=== PATIENT | female | born 1960 | race Caucasian/White ===

== ENCOUNTER 2020-09-23 01:41 | Emergency (ER) | payer OTHER, SELFPAY ==
[2020-09-23 01:50] VITALS: BP 132/87; PULSE 78; RESP 18; TEMP 36.4; O2SAT 99; BMI 30.9
--- NOTE | 2020-09-23 01:58 | ED.FEMALEGU ---
HPI - Female Genitourinary General Chief complaint: Urogenital-Female Stated complaint: Multiple complaints Time Seen by Provider: 09/23/20 01:58 Source: patient Mode of arrival: ambulatory Limitations: no limitations History of Present Illness HPI Narrative: Patient with significant past medical history was in [place] came back 4 days ago for last 2 days feeling pain when she urinates, with urgency body aches and nausea no hematuria no flank pain no abdominal distention or pain just does not feel good patient had COVID in 04/13 MD elicited complaint: dysuria Related Data Allergies Allergy/AdvReac Type Severity Reaction Status Date / Time No Known Allergies Allergy Unverified 03/11/20 14:42 N.K.D.A. Allergy Unknown Uncoded 09/23/18 00:00 Pt states she might be AdvReac Unknown Gassiness Uncoded 08/27/17 00:00 lactose Review of Systems Review of Systems: Constitutional : No Weight loss, No Fever, No Chills ENT/Mouth : No sore throat, No Rhinorrhea Eyes: No Eye Pain, No Swelling Cardiovascular : No Chest Pain, no palpitations Respiratory : No Cough, No Sputum, no shortness of breath Gastrointestinal : no Nausea, No Vomiting, No Diarrhea, No abdominal Pain, no black stools Genitourinary : ++ Dysuria, No Urinary Frequency Musculoskeletal : No joint pain, No Myalgias, No Joint Swelling Skin : No Skin Lesions, No rash Neuro : No Weakness, No Numbness, No Dizziness, No Headache Psych : No Anxiety/Panic, No Depression Heme/Lymph: No Bruising, No Lymphadenopathy Endocrine : No Polyuria, No Polydipsia All other systems reviewed and are negative [facility] Social History Social History Advance Directives: No Physical Exam Vital Signs: Vital Signs: Last Vital Signs Temp 97.6 F 09/23/20 01:50 Pulse 83 09/23/20 03:05 Resp 16 09/23/20 03:05 BP 119/76 09/23/20 03:05 Pulse Ox 98 09/23/20 03:05 Body Mass Index 30.9 Appearance: Alert. Oriented X3. No acute distress. Eyes: Pupils equal, round and reactive to light. ENT: Pharynx normal. Neck: Normal inspection. Neck supple. CVS: Normal heart rate and rhythm. Pulses normal. Respiratory: No respiratory distress. Breath sounds normal. Abdomen: Soft and nontender. Bowel sounds are present, no mass palpable, no CVA tenderness Skin: Skin warm and dry. Normal skin color. Normal skin turgor. Extremities: No lower extremity edema. Neuro: Oriented X 3. No motor deficit. No sensory deficit. MDM - Female Genitourinary MDM Narrative Medical decision making narrative: Patient with non specific symptoms urine is negative for UTI COVID also negative no significant past medical history likely from viral etiology. Will discharge patient home Differential Diagnosis Differential diagnosis: Likely urinary tract infection Lab Data Attestation: I reviewed the patient's lab results. Labs: Lab Results 09/23/20 09/23/20 09/23/20 Range/Units 01:59 02:16 03:16 POC Glucose 130 H (60-115) mg/dL Urine Color YELLOW Urine Appearance CLEAR Urine pH 6.5 (5.0-8.0) Ur Specific Jackson 1.020 (1.005-1.025) Urine Protein NEG (NEG-TRACE) MG/DL Urine Glucose (UA) NEG (NEG) MG/DL Urine Ketones NEG (NEG) MG/DL Urine Blood NEG (NEG) Urine Nitrite NEG (NEG) Ur Leukocyte Esterase NEG (NEG) COVID-19 (KEENAN) Negative (Negative) COVID-19 Clin Com See Note Discharge Plan Discharge Clinical Impression: Weakness Patient Disposition: Home, Self-Care Instructions: Weakness (ED) Additional Instructions: Drink plenty of fluids , your urine is negative for any infection and COVID test is also negative. Follow with PCP if not better Report to the ER if any significant abdominal pain/fever/increased vomiting Interventions: ED Discharge Assessment Last Done: 09/23/20 03:31 Discharge Date/Time: 09/23/20 03:15
--- NOTE | 2020-09-23 02:00 | PC.NURSE ---
UA obtained and sent. Awaiting primary MD eval.
[2020-09-23 02:05] LABS: Glucose Urine UA NEG (NEG); Leukocyte Esterase Urine NEG (NEG); Nitrite Urine NEG (NEG); PH 6.5 (5.0-8.0); Urine Blood NEG (NEG); Urine Ketones NEG (NEG); Urine Protein NEG (NEG-TRACE)
[2020-09-23 02:06] LABS: Appearance Urine CLEAR; Color Urine YELLOW; UACC Culture Trigger NO
--- NOTE | 2020-09-23 02:08 | PC.NURSE ---
at bedside for primary eval.
--- NOTE | 2020-09-23 02:26 | PC.NURSE ---
Covid swab obtained and sent.
[2020-09-23 02:37] LABS: IDNOW Serial# 9DD0AD1C
[2020-09-23 02:38] LABS: COVID-19 Test Negative (Negative)
[2020-09-23 03:05] VITALS: BP 119/76; PULSE 83; RESP 16; O2SAT 98
--- NOTE | 2020-09-23 03:20 | PC.NURSE ---
POC obtained by airframe technician. Medicated per AUG.
[2020-09-23 03:24] LABS: Glucose, Whole Blood 130 mg/dL (60-115)
== END 2020-09-23 03:15 | disposition home or self-care (01) ==
PROVIDERS: Emergency Provider Internal Medicine; PCP Family Medicine
DX: R53.1 Weakness (principal); R30.0 Dysuria; R11.0 Nausea; Z20.822 Contact with and (suspected) exposure to COVID-19
CPT/HCPCS: 36415; 81003; 82947; 87635; 99283; 99284

== ENCOUNTER 2021-01-26 07:48 | Outpatient (REF) | payer OTHER, SELFPAY ==
--- NOTE | ~2021-01-26 | MM_ITS ---
EXAMINATION: MM SCREENING DIGITAL BREAST TOMOSYNTHESIS, BILATERAL CLINICAL INFORMATION: Screening. Asymptomatic. The lifetime risk of breast cancer based on the Tyrer-Cuzick Model is 9%. COMPARISON: Mammography: 01/21/2020, 11/01/2018, 08/07/2017 TECHNIQUE: Digital breast tomosynthesis is performed in both the craniocaudal and mediolateral oblique views along with computer-aided detection (CAD). Synthesized 2D images are generated from the tomosynthesis. Additional exaggerated left CC view is provided. FINDINGS: There are scattered areas of fibroglandular density (ACR BI-RADS breast composition Category b). There are no significant masses, abnormal calcifications, or other abnormalities. There is a smooth circumscribed nodule again seen 6:30 o'clock left breast under 5 mm. A few scattered benign round calcifications are again noted. The skin contours are smooth. MM/MM tomosynthesis screening BI IMPRESSION: No significant changes from prior exam. ASSESSMENT: BI-RADS 2: Benign RECOMMENDATION: Routine annual mammography screening. This patient's information was entered into a reminder system with a target due date for their next mammogram.
--- NOTE | ~2021-01-26 | MM_ITS ---
EXAMINATION: BONE DENSITOMETRY CLINICAL INDICATION: Osteoporosis. COMPARISON: This is the patient's baseline examination. TECHNIQUE: Using a [employer] DXA System (software version: 13.1) manufactured by [employer], dual-energy x-ray absorptiometry was performed of the lumbar spine and left hip. The images are of good technical quality. Summary results are attached. FINDINGS: AP SPINE L1-L4: BMD 1.265 g/cm2, Z-score 1.5, T-score 0.7, normal. LEFT FEMUR, NECK: BMD 0.925 g/cm2, Z-score 0.1, T-score -0.8, normal. LEFT FEMUR, TOTAL: BMD 1.042 g/cm2, Z-score 0.9, T-score 0.3, normal. IDENTIFIED RISK FACTORS: Menopause, family history (parent hip fracture). HISTORY OF FRACTURE: None listed. MEDICATIONS: Vitamin D. MM/XR DEXA axial skeleton IMPRESSION: 1. DIAGNOSIS: Normal bone density based on the lowest T-score value of -0.8 in the femoral neck applying World Health Organization criteria. 2. 10-YEAR FRACTURE RISK PREDICTION, FRAX: Major osteoporotic fracture (clinical spine, forearm, hip or shoulder) 13.8%. Hip fracture 0.3%. 3. Treatment Recommendations: NOF guidelines recommend consideration for treatment in postmenopausal women and men age 50 and older presenting with the following: -A hip or vertebral (clinical or morphometric) fracture. -T-score less than or equal to -2.5 at the femoral neck or spine after appropriate evaluation to exclude secondary causes. -Low bone mass at the hip or spine and a 10-year fracture probability by FRAX of greater than or equal to 3% for hip fracture or greater than or equal to 20% for major osteoporotic fracture based on the [place] adapted WHO algorithm. 4. Other Recommendations: All treatment decisions require clinical judgment and consideration of individual patient factors, including patient preferences, comorbidities, previous drug use, risk factors not captured in the FRAX model (e.g. frailty, falls, vitamin D deficiency, increased bone turnover, interval significant decline in bone density) and possible under or overestimation of fracture risk by FRAX. FUTURE SCAN RECOMMENDATION: People with diagnosed cases of osteoporosis or at high risk for fracture should have regular bone mineral density tests. For patients eligible for Medicare, routine testing is allowed once every 2 years. The testing frequency can be increased to one year for patients who have rapidly progressing disease, those who are receiving or discontinuing medical therapy to restore bone mass, or have additional risk factors.
== END 2021-01-26 07:49 | disposition home or self-care (01) ==
LOC: HO.MAMMO 07:48
PROVIDERS: PCP Family Medicine; Visit Provider Obstetrics & Gynecology
DX: Z12.31 Encounter for screening mammogram for malignant neoplasm of breast (principal); Z13.820 Encounter for screening for osteoporosis; Z78.0 Asymptomatic menopausal state; Z79.899 Other long term (current) drug therapy
CPT/HCPCS: 77063; 77067; 77080

== ENCOUNTER 2021-06-15 10:50 | Outpatient (REF) | payer OTHER, SELFPAY | END 2021-06-15 10:51 | disposition home or self-care (01) | LOC: HO.LAB 10:50 | PROVIDERS: Visit Provider Internal Medicine | DX: Z20.822 Contact with and (suspected) exposure to COVID-19 (principal) | CPT/HCPCS: C9803; U0003; U0005 ==

== ENCOUNTER 2022-01-27 08:04 | Outpatient (REF) | payer OTHER, SELFPAY ==
--- NOTE | ~2022-01-27 | MM_ITS ---
EXAMINATION: MM SCREENING DIGITAL BREAST TOMOSYNTHESIS, BILATERAL CLINICAL INFORMATION: Screening. Asymptomatic. The lifetime risk of breast cancer based on the Tyrer-Cuzick Model is 6%. COMPARISON: Mammography: 01/26/2021, 01/21/2020, 11/01/2018, 07/31/2016 TECHNIQUE: Digital breast tomosynthesis is performed in both the craniocaudal and mediolateral oblique views along with computer-aided detection (CAD). Synthesized 2D images are generated from the tomosynthesis. FINDINGS: There are scattered areas of fibroglandular density (ACR BI-RADS breast composition Category b). There are no significant masses, abnormal calcifications, or other abnormalities. Parenchymal pattern is similar to prior studies. There is no developing density or architectural abnormality. The axilla and skin contours are unremarkable. No significant changes. MM/MM tomosynthesis screening BI IMPRESSION: No significant changes from prior exams. ASSESSMENT: BI-RADS 1: Negative RECOMMENDATION: Routine annual mammography screening. This patient's information was entered into a reminder system with a target due date for their next mammogram.
== END 2022-01-27 08:05 | disposition home or self-care (01) ==
LOC: HO.MAMMO 08:04
PROVIDERS: PCP Family Medicine; Visit Provider Obstetrics & Gynecology
DX: Z12.31 Encounter for screening mammogram for malignant neoplasm of breast (principal)
CPT/HCPCS: 77063; 77067

== ENCOUNTER 2022-08-15 18:20 | Emergency (ER) | payer OTHER, SELFPAY ==
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
[2022-08-15 18:38] VITALS: BP 128/86; PULSE 76; RESP 18; TEMP 36.7; O2SAT 97; BMI 30.9
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
[2022-08-15] MEDS: Ibuprofen 600 MG TABLET PO (21:52)
== END 2022-08-15 22:55 | disposition home or self-care (01) ==
PROVIDERS: Emergency Provider Emergency Medicine; PCP Family Medicine
DX: S13.4XXA Sprain of ligaments of cervical spine, initial encounter (principal); S09.90XA Unspecified injury of head, initial encounter; V43.52XA Car driver injured in collision with other type car in traffic accident, initial encounter; Y93.89 Activity, other specified; Y92.414 Local residential or business street as the place of occurrence of the external cause; Y99.8 Other external cause status
CPT/HCPCS: 70450; 72125; 99283; 99284

== ENCOUNTER 2023-04-05 08:38 | Outpatient (AMB) | payer OTHER, SELFPAY ==
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
[2023-04-05 09:24] VITALS: BP 110/70; PULSE 80; O2SAT 98
== END 2023-04-05 09:50 | disposition home or self-care (01) ==
PROVIDERS: PCP Family Medicine; Visit Provider Physician Assistant
DX: B86 Scabies (principal)
CPT/HCPCS: 99213

== ENCOUNTER 2023-10-20 10:41 | Outpatient (AMB) | payer OTHER, SELFPAY ==
--- NOTE | 2023-10-20 10:48 | MHC.OFFWIV ---
Intake Vital Signs 10/20/23 10:58 Height 5 ft 4.5 in Weight 187 lb BMI 31.6 BP 120/82 Blood Pressure Location Lt brachial Position Sitting Pulse 88 Pulse Source Pulse Oximeter Temp 98.1 F Temp Source Oral Pulse Oximetry (%) 96 Oxygen Delivery Method Room Air Intake Visit Reasons: EP allergies Intake Note: Pt is here today c/o allergies and a cough 3days Patient Tobacco Use Status: Never used Tobacco Allergies No Known Allergies Allergy (Verified 10/20/23 11:15) N.K.D.A. Allergy (Unknown, Uncoded 10/20/23 10:48) unknown Pt states she might be lactose Adverse Reaction (Unknown, Uncoded 10/20/23 10:48) Gassiness Medication List - Last Reconciled 10/20/23 by Clary Barber, [employer]- alprazolam 1 mg PO DAILY PRN bupropion HCl XL 300 mg PO DAILY cetirizine (Zyrtec) 10 mg PO DAILY PRN citalopram 10 mg PO DAILY fluticasone propionate 50 mcg/actuation (Flonase Allergy Relief) 1 spray intranasal DAILY permethrin 5% 1 appl topical Q14D 2 doses HPI HPI Comments History of Present Illness Details Here today with complaints of uncontrolled seasonal allergies. Reports that she takes zyrtec & Flonase daily. Within the last few days she has experienced a cough, mild wheezing, nasal drainage. She reports that she has used prednisone in the past with great effect along with an inhaler. She does not feel ill. She denies fever, chills, ear pain, sore throat. [facility] Social History Patient Tobacco Use Status: Never used Tobacco Review of Systems Const All systems reviewed & are unremarkable except as noted in HPI and below Physical Exam Vital Signs: Last Vital Signs Temp 98.1 F 10/20/23 10:58 Pulse 88 10/20/23 10:58 BP 120/82 10/20/23 10:58 Pulse Ox 96 10/20/23 10:58 Oxygen Delivery Method Room Air 10/20/23 10:58 BMI result Body Mass Index 31.6 Const Other: Awake alert NAD Sclera and conjunctiva clear bilat TM intact and clear bilat nares patent, turbinates pale, no sinus tenderness MMM, pharynx WNL RRR LS CTAB, occasional dry cough Assessment & Plan Assessment & Plan (1) Seasonal allergies: Code(s): J30.2 - Other seasonal allergic rhinitis Plan: . Plan . Medications: New prednisone 20 mg PO DAILY 5 tabs 0RF albuterol sulfate 90 mcg/actuation 2 inhalations inhalation Q6H PRN 1 ea 0RF shortness of breath or wheezing Patient Instructions: Advised to continue taking Flonase and Zyrtec. Start prednisone and albuterol. If no improvement or worsening of symptoms advised to return to the office. Coding Level of Care Code Est Pt Level 3 (02648) Diagnoses Seasonal allergies J30.2
[2023-10-20 10:58] VITALS: BP 120/82; PULSE 88; TEMP 36.7; O2SAT 96; BMI 31.6
== END 2023-10-20 11:38 | disposition home or self-care (01) ==
PROVIDERS: PCP Family Medicine; Visit Provider Nurse Practitioner Family
DX: J30.2 Other seasonal allergic rhinitis (principal)
CPT/HCPCS: 99213

== ENCOUNTER 2024-09-29 22:43 | Emergency (ER) | payer BC, SELFPAY ==
--- NOTE | ~2024-09-29 | XR_ITS ---
CLINICAL HISTORY: left knee pain 4 view left knee Comparison: None Findings: Bones intact. No dislocations. Moderate tricompartmental osteoarthritis with joint space narrowing pronounced in the medial and patellofemoral compartments. No joint effusion. No radiopaque foreign body. IMPRESSION: 1. No acute fracture. This document has been electronically signed by: Savage Calhoun MD on 09/29/2024 23:32:47
[2024-09-29 22:48] VITALS: BP 176/102; PULSE 72; O2SAT 100
[2024-09-29 22:56] VITALS: BP 126/74; PULSE 74; RESP 16; TEMP 36.6; O2SAT 99; BMI 35.6
--- NOTE | 2024-09-30 | ED_ITS ---
HPI - Extremity Injury (Lower) General Chief Complaint: Extremity Injury, Lower Stated Complaint: Fall, felt pop in L knee Time Seen by Provider: 09/29/24 23:49 Source: patient and EMS Mode of arrival: EMS Limitations: no limitations History of Present Illness ED Provider: DR. Carranza HPI Narrative: 63-year-old female otherwise healthy came in for evaluation of left knee pain after she twisted it and fell. Patient was holding a heavy box that dropped off her hand causing the patient to trip over it twisting her left knee patient felt pop in the left knee, patient could not get herself up, can not bear weight on her left knee because of the pain. No head injury, no neck pain, no LOC, anticoagulation medication, no chest pain, no shortness of breath, no abdominal pain, no nausea, no vomiting. Related Data Home Medications ?Medication ?Instructions ?Recorded ?Confirmed alprazolam 1 mg tablet 1 mg PO DAILY PRN 04/05/23 10/20/23 bupropion HCl 300 mg 24 hr tablet, 300 mg PO DAILY 04/05/23 10/20/23 extended release citalopram 10 mg tablet 10 mg PO DAILY 04/05/23 10/20/23 cetirizine 10 mg tablet (Zyrtec) 10 mg PO DAILY PRN 10/20/23 10/20/23 fluticasone propionate 50 1 spray intranasal DAILY 10/20/23 10/20/23 mcg/actuation nasal spray,suspension (Flonase Allergy Relief) Previous Rx's ?Medication ?Instructions ?Recorded permethrin 5 % topical cream 1 appl topical Q14D 2 doses #60 04/05/23 grams albuterol sulfate 90 mcg/actuation 2 inh inhalation Q6H PRN shortness 10/20/23 breath activated powder inhaler of breath or wheezing #1 ea prednisone 20 mg tablet 20 mg PO DAILY #5 tabs 10/20/23 Allergies Allergy/AdvReac Type Severity Reaction Status Date / Time No Known Allergies Allergy Verified 09/29/24 23:01 N.K.D.A. Allergy Unknown unknown Uncoded 09/29/24 23:01 Pt states she might be AdvReac Unknown Gassiness Uncoded 09/29/24 23:01 lactose Review of Systems Review of Systems: All other systems are reviewed and are negative Constitutional: Reports as per HPI and Reports no additional constitutional complaints Eyes: Reports as per HPI and Reports no additional eye complaints Reports system reviewed and no additional complaints, except as documented Cardiovascular: Reports as per HPI and Reports no additional cardiovascular complaints Respiratory: Reports as per HPI and Reports no additional respiratory complaints Gastrointestinal: Reports as per HPI and Reports no additional gastrointestinal complaints Genitourinary: Reports no additional female genitourinary complaints Musculoskeletal: Reports no additional musculoskeletal complaints Skin/Breast: Reports system reviewed and no additional complaints, except as docu Psychiatric: Reports no additional psychiatric complaints Endocrine: Reports no additional endocrine complaints Hematologic/Lymphatic: Reports no additional hematologic/lymphatic complaints Allergic/Immunologic: Reports no additional allergic/immunologic complaints Reports system reviewed and no additional complaints, except as documented and Reports Abnormal speech present [facility] Social History Social History Patient Tobacco Use Status: Never used Tobacco Smoked in Last 30 Days: No Use of substances other than those prescribed or required for medical reasons: No Do you have a plan to hurt others: No Plan Patient : No Physical Exam Vital Signs: Vital Signs: Last Vital Signs Temp 97.9 F 09/29/24 22:56 Pulse 74 09/29/24 22:56 Resp 16 09/29/24 22:56 BP 126/74 09/29/24 22:56 Pulse Ox 99 09/29/24 22:56 O2 Del Method Room Air 09/29/24 22:56 BMI result Body Mass Index 35.6 Vital signs have been reviewed and appear to be correct. Blood pressure elevated. Heart rate normal. Respiratory rate normal. Temperature normal. Oxygen saturation normal. Appearance: Alert. Oriented X3. No acute distress. Head: Normal external exam. Normocephalic. Atraumatic. No Cordero signs noted. No raccoon eyes noted Eyes: PERRLA. EOMI. Conjunctiva and sclera normal. Eyelids normal. ENT: TM's Normal. Pharynx normal. Uvula midline. Moist mucous membranes. No trismus noted. No drooling noted. No muffled voice noted. Neck: Normal inspection. Neck supple. FROM. No adenopathy. Thyroid Normal. No meningeal signs. No neck mass noted. CVS: Normal heart rate and rhythm. Heart sound normal. No murmurs noted. Pulses normal throughout. Respiratory: No respiratory distress. Painless inspiration. Breath sounds normal. No wheezes/rales/rhonchi noted. Chest nontender. No accessory muscle usage noted or decreased air movement noted. Abdomen: Soft and nontender. Bowel sounds normal in all 4 quadrants. No distention noted. No organomegaly noted. No visible injury noted. Back: No CVA tenderness. Full range of motion noted. Skin: Skin warm and dry. Normal skin color. Normal skin turgor. No rashes/lesions/lacerations noted. Extremities: Left lower extremity exam: Left knee slight swelling, mild tenderness over the medial aspect of the left knee, otherwise painful for range of motion, unable to do ligamentous exam secondary to severe pain in the left knee, no hip deformity or tenderness with full range of motion, neurovascularly intact. Neuro: Oriented X 3. Cranial nerve exam: II-XII are grossly intact No motor deficit. No sensory deficit. Reflexes normal. Course Reevaluation(s) Reevaluation #1: Left knee sprain,: Apply ice tonight, knee immobilizer, no weight-bearing use crutches, follow-up with ortho. Time: 00:04 Medical Decision Making Differential Diagnosis Differential Diagnoses: The differential diagnosis associated with the presentation includes (Head injury, cervical spine injury, chest injury, abdominal injury, left knee fracture, left knee ligamentous injury, hip fracture.) Admission/Observation Consideration of admission/observation: Escalation of care including admission/observation considered Independent Interpretation I performed an independent interpretation of an: Plain X-Ray (Left knee x- ray:Bones intact. No dislocations. Moderate tricompartmental osteoarthritis with joint space narrowing pronounced in the medial and patellofemoral compartments. No joint effusion. No radiopaque foreign body.) Radiology Impression Discussion of test interpretation with radiology: I have reviewed the radiologist's reading. Discharge Plan Discharge Clinical Impression: Acute internal derangement of knee Patient Disposition: Home, Self-Care Instructions: Knee Sprain (ED) Prescriptions: No Action bupropion HCl 300 mg tablet extended release 24 hr 300 mg PO DAILY citalopram 10 mg tablet 10 mg PO DAILY alprazolam 1 mg tablet 1 mg PO DAILY PRN permethrin 5 % cream 1 appl topical Q14D Qty: 60 0RF Rx Instructions: apply second treatment 14 days after first treatment if live lice remain cetirizine [Zyrtec] 10 mg tablet 10 mg PO DAILY PRN fluticasone propionate [Flonase Allergy Relief] 50 mcg/actuation spray,suspension 1 spray intranasal DAILY Rx Instructions: administer into each nostril prednisone 20 mg tablet 20 mg PO DAILY Qty: 5 0RF albuterol sulfate 90 mcg/actuation aerosol powdr breath activated 2 inh inhalation Q6H PRN (Reason: shortness of breath or wheezing) Qty: 1 0RF Referrals: Michael Carrera MD [Physician] - Stand Alone Forms: Work/School Release Print Language: Tanzanian
[2024-09-30 00:32] VITALS: BP 111/71; PULSE 69; RESP 16; TEMP 36.4; O2SAT 97
[2024-09-30] MEDS: Ibuprofen 400 MG TABLET PO (00:35)
[2024-09-30 00:53] VITALS: BP 111/71; PULSE 69; RESP 16; TEMP 36.4; O2SAT 97
--- NOTE | 2024-09-30 00:54 | PC.NURSE ---
Left knee brace applied. Pt tolerated well. Crutch training provided. Pt able to demonstrate proper use of crutches.
== END 2024-09-30 01:13 | disposition home or self-care (01) ==
LOC: HO.ED 09-30 00:33
PROVIDERS: Emergency Provider Emergency Medicine
DX: M23.8X2 Other internal derangements of left knee (principal); M25.562 Pain in left knee
CPT/HCPCS: 73564; 99283; 99284

== ENCOUNTER → 2024-09-29 22:55 | Outpatient (BNV) | payer BC, SELFPAY | PROVIDERS: Emergency Provider Emergency Medicine; Visit Provider Radiology Diagnostic Radiology | DX: M25.562 Pain in left knee (principal) | CPT/HCPCS: 73564 ==

== ENCOUNTER 2025-06-08 07:23 | Observation (INO) | payer MEDICARE, SELFPAY ==
[2025-06-08] VITALS (7 sets, daily range): BP systolic 119–143; BP diastolic 60–94; PULSE 89–106; RESP 14–18; TEMP 35.8–37.1; O2SAT 95–98
--- NOTE | ~2025-06-08 | XR_ITS ---
EXAMINATION: XR CHEST CLINICAL INFORMATION: cough COMPARISON: None available. TECHNIQUE: PA and lateral views FINDINGS: Small volume lucency in the periphery of the right hemithorax. No gross consolidation or pleural effusion. Cardiomediastinal silhouette size is normal. Mild S-shaped curvature of the thoracic spine and mild multilevel spondylosis. Vascular clips right upper quadrant abdomen likely prior cholecystectomy. XR/XR chest 2V IMPRESSION: Small volume right-sided pneumothorax. Findings communicated via [employer] text to nurse practitioner Harmony Mai on June 08, 2025 at 9:57 AM. Electronically signed by: Steve Wagoner MD 06/08/2025 09:58 AM [facility]
--- NOTE | ~2025-06-08 | CT_ITS ---
EXAMINATION: CT CHEST WITHOUT IV CONTRAST INDICATION: small R pneumothorax for chest tube placement COMPARISON: Previous chest x-ray from earlier the same day TECHNIQUE: Helical CT scan of the chest was performed without intravenous contrast. Coronal and sagittal reformatted images were generated and reviewed. This CT exam was performed with one or more of the following dose reduction techniques: automated exposure control, adjustment of the mA and/or kV according to patient size, use of iterative reconstruction technique. DLP: 169 mGy-cm CHEST: THYROID: The thyroid is unremarkable. LUNGS: Low lung volumes. Subsegmental atelectasis at the lung bases. There may be scattered areas of mild bronchial wall thickening. No evidence of pneumonia or pulmonary nodule. MEDIASTINUM: There are small mediastinal lymph nodes. No enlarged lymph nodes. There may be a small hiatal hernia. TRAVON: Evaluation of the hilar regions is limited by lack of intravenous contrast material. CARDIOVASCULATURE: The heart is normal in size. There is no pericardial effusion. The thoracic aorta is normal in caliber. DEGREE OF CORONARY CALCIFICATION: mild PLEURA: There is no pleural effusion. No pneumothorax. MAIN AIRWAYS: The mainstem bronchi and proximal branches are patent. AXILLA: There is no axillary lymphadenopathy. No chest wall mass. BONES AND SOFT TISSUES: Degenerative changes of the spine and shoulders. No fracture. UPPER ABDOMEN: The visualized portions of the liver, spleen, and adrenals have an unremarkable unenhanced appearance. The gallbladder has been removed. Diverticulosis of the colon. CT/CT chest wo IV con IMPRESSION: No pneumothorax seen. Chest tube was not placed. Electronically signed by: Sheyla Plascencia MD 06/08/2025 12:37 PM [facility]
--- NOTE | ~2025-06-08 | XR_ITS ---
EXAMINATION: XR CHEST CLINICAL INFORMATION: Evaluate for pneumothorax COMPARISON: 06/08/2025. TECHNIQUE: Frontal view of the chest was obtained. FINDINGS: The cardiac, hilar, and mediastinal contours are normal. Mild aortic mural calcification. The lungs are clear bilaterally. No pneumothorax or effusion. No focal osseous or soft tissue abnormality. XR/XR chest 1V IMPRESSION: No active lung disease. Specifically, no pneumothorax. Review of imaging from 06/08/2025, 9:52 AM, shows the presence of a right lateral skin fold mimicking a pneumothorax. Electronically signed by: Beto Sanchez MD 06/09/2025 09:26 AM [facility]
[2025-06-08 08:03] LABS: IDNOW Serial# 6674DD1D; Strep A Nucleic Acid Negative (Negative)
[2025-06-08 08:24] LABS: COVID-19 Test Negative (Negative); IDNOW Serial# 58CA691E
--- NOTE | 2025-06-08 08:29 | ED.GENADULT ---
HPI - General Adult General Chief complaint: Headache Stated complaint: headache since sat, vomiting Time Seen by Provider: 06/08/25 08:25 Related Data Home Medications ?Medication ?Instructions ?Recorded ?Confirmed alprazolam 1 mg tablet 1 mg PO DAILY PRN 04/05/23 10/20/23 bupropion HCl 300 mg 24 hr tablet, 300 mg PO DAILY 04/05/23 10/20/23 extended release citalopram 10 mg tablet 10 mg PO DAILY 04/05/23 10/20/23 cetirizine 10 mg tablet (Zyrtec) 10 mg PO DAILY PRN 10/20/23 10/20/23 fluticasone propionate 50 1 spray intranasal DAILY 10/20/23 10/20/23 mcg/actuation nasal spray,suspension (Flonase Allergy Relief) Previous Rx's ?Medication ?Instructions ?Recorded permethrin 5 % topical cream 1 appl topical Q14D 2 doses #60 04/05/23 grams albuterol sulfate 90 mcg/actuation 2 inh inhalation Q6H PRN shortness 10/20/23 breath activated powder inhaler of breath or wheezing #1 ea prednisone 20 mg tablet 20 mg PO DAILY #5 tabs 10/20/23 Allergies Allergy/AdvReac Type Severity Reaction Status Date / Time No Known Allergies Allergy Verified 06/08/25 07:44 N.K.D.A. Allergy Unknown unknown Uncoded 06/08/25 07:44 Pt states she might be AdvReac Unknown Gassiness Uncoded 06/08/25 07:44 lactose PMFSH Social History Social History Patient Tobacco Use Status: Never used Tobacco Physical Exam ED Vital Signs: Vital Signs - 24 hr 06/08/25 07:41 Temperature 96.5 F L Pulse Rate 106 H Respiratory Rate 16 Blood Pressure 143/84 H Pulse Oximetry 95 Oxygen Delivery Method Room Air BMI result Body Mass Index 30.0 Medical Decision Making Lab Data Labs: Lab Results 06/08/25 Range/Units 07:51 COVID-19 (KEENAN) Negative (Negative) COVID-19 Clin Com See Note S. pyogenes GrpA LORIE Negative (Negative) Discharge Plan Discharge Prescriptions: No Action bupropion HCl 300 mg tablet extended release 24 hr 300 mg PO DAILY citalopram 10 mg tablet 10 mg PO DAILY alprazolam 1 mg tablet 1 mg PO DAILY PRN permethrin 5 % cream 1 appl topical Q14D Qty: 60 0RF Rx Instructions: apply second treatment 14 days after first treatment if live lice remain cetirizine [Zyrtec] 10 mg tablet 10 mg PO DAILY PRN fluticasone propionate [Flonase Allergy Relief] 50 mcg/actuation spray,suspension 1 spray intranasal DAILY Rx Instructions: administer into each nostril prednisone 20 mg tablet 20 mg PO DAILY Qty: 5 0RF albuterol sulfate 90 mcg/actuation aerosol powdr breath activated 2 inh inhalation Q6H PRN (Reason: shortness of breath or wheezing) Qty: 1 0RF Print Language: Mohawk
--- NOTE | 2025-06-08 08:54 | ED.GENADULT ---
HPI - General Adult General Chief complaint: Headache Stated complaint: headache since sat, vomiting Time Seen by Provider: 06/08/25 08:25 Source: patient, RN notes reviewed and old records reviewed Mode of arrival: ambulatory Limitations: no limitations History of Present Illness ED Provider: Pau JACKSON narrative: Patient is a 64-year-old female presenting to the emergency department with complaint of headache since Sunday, nausea and vomiting since this morning. Reports that she developed a sore throat on Sunday, went to urgent care on and was started on amoxicillin. She states that she tested negative for COVID and flu at that time. On Sunday she developed a headache which was not improved with Tylenol. This morning she had an episode of nausea and vomiting after attempting to take her amoxicillin. Reports that her grandchildren have recently tested positive for the flu. Denies any chest or abdominal pain. Complains of a nonproductive cough. MD complaint: Headache, vomiting Related Data Home Medications ?Medication ?Instructions ?Recorded ?Confirmed bupropion HCl 300 mg 24 hr tablet, 300 mg PO DAILY 04/05/23 10/20/23 extended release citalopram 10 mg tablet 10 mg PO DAILY 04/05/23 10/20/23 cetirizine 10 mg tablet (Zyrtec) 10 mg PO DAILY PRN 10/20/23 10/20/23 fluticasone propionate 50 1 spray intranasal DAILY 10/20/23 10/20/23 mcg/actuation nasal spray,suspension (Flonase Allergy Relief) alprazolam 0.25 mg tablet 0.25 mg PO DAILY PRN Anxiety 06/08/25 amoxicillin 875 mg tablet 875 mg PO BID 06/08/25 Previous Rx's ?Medication ?Instructions ?Recorded permethrin 5 % topical cream 1 appl topical Q14D 2 doses #60 04/05/23 grams albuterol sulfate 90 mcg/actuation 2 inh inhalation Q6H PRN shortness 10/20/23 breath activated powder inhaler of breath or wheezing #1 ea Allergies Allergy/AdvReac Type Severity Reaction Status Date / Time No Known Allergies Allergy Verified 06/08/25 07:44 N.K.D.A. Allergy Unknown unknown Uncoded 06/08/25 07:44 Pt states she might be AdvReac Unknown Gassiness Uncoded 06/08/25 07:44 lactose Review of Systems Review of Systems: As per HPI Yes all other systems are reviewed and are negative Constitutional: Constitutional: Reports as per HPI [facility] Social History Social History Patient Tobacco Use Status: Never used Tobacco Smoked in Last 30 Days: No Use of substances other than those prescribed or required for medical reasons: No Advance Directives: No Advance Directives Information Provided: No Do you have a plan to hurt others: No Plan Physical Exam ED Vital Signs: Vital Signs - 24 hr 06/08/25 07:41 06/08/25 10:41 Temperature 96.5 F L 98.2 F Pulse Rate 106 H 94 Respiratory Rate 16 17 Blood Pressure 143/84 H 141/94 H Pulse Oximetry 95 95 Oxygen Delivery Method Room Air Room Air BMI result Body Mass Index 30.0 Vital signs have been reviewed and appear to be correct. Blood pressure normal. Heart rate slightly tachycardic. Respiratory rate normal. Temperature normal. Oxygen saturation normal. Const General: cooperative, healthy appearing and no acute distress Orientation/consciousness: oriented to person, oriented to place, oriented to time and patient oriented x3 Limitations: no limitations HENNY Head: Yes normocephalic and Yes atraumatic Ears: external ears normal General nose exam: Normal external nose present Face and sinus: Yes face symmetric Mouth: oropharynx normal and moist mucous membranes Throat: Yes uvula midline Eyes Pupils: Equal, round and reactive pupils present Neck Neck: Yes normal visual inspection and Yes supple Resp Effort & Inspection: normal respiratory effort and able to speak in complete sentences Auscultation: clear to auscultation bilaterally and wheezes scattered wheezes Cardio Rate: regular rate Rhythm: regular rhythm Heart sounds: S1 normal heart sound present and S2 normal heart sound present GI Palpation (GI): Soft to palpation and nontender Auscultation: normoactive bowel sounds General: Yes no CVA tenderness Back/Spine/Pelvis Back: no CVA tenderness Skin General skin exam: elasticity normal and turgor normal Neuro General: oriented to person, oriented to place, oriented to time, patient oriented x3, moves all extremities, no focal motor deficits and CN's II-XI intact bilaterally Cranial nerves: Yes Equal, round and reactive pupils present Cognition (Neuro): normal cognition Extrem General: Yes full ROM, Yes no pedal edema and Yes no calf tenderness Psych Mental Status: mental status grossly normal Affect: normal affect Thought process: Normal thought process present Course Reevaluation(s) Reevaluation #1: Notified by radiologist that CXR shows small R sided pneumothorax. Attending, Dr. Navarro notified. Patient placed on O2 @ 2lpm via [place] text to Dr. Carter to discuss treatment here versus transfer. Dr. Carter is comfortable with monitoring the patient here after pigtail chest tube placed by IR. Patient updated on results and plan and provided verbal consent. Time: 09:57 Reevaluation #2: Case discussed with LILIAN Lawernce hospitalist, Time: 11:02 Medications Administered Discontinued Medications Generic Name Dose Route Start Last Admin Trade Name Freq PRN Reason Stop Dose Admin Diphenhydramine HCl 25 mg 06/08/25 09:38 06/08/25 10:35 Diphenhydramine Hcl 50 Mg/Ml Vial IVPUSH 06/08/25 09:39 25 mg ONCE ONE Administration Sodium Chloride 1,000 mls @ 999 mls/hr 06/08/25 09:45 06/08/25 11:47 Ns IV 06/08/25 10:45 Infused .Q1H1M ARNEL Infusion Doxycycline Hyclate 100 mg/ 250 mls @ 166.67 mls/hr 06/08/25 09:42 06/08/25 10:36 Sodium Chloride IV 06/08/25 11:11 166.67 mls/hr ONCE ONE Administration Ketorolac Tromethamine 15 mg 06/08/25 09:40 06/08/25 10:36 Ketorolac Tromethamine 15 Mg/Ml Vial IVPUSH 06/08/25 09:41 15 mg ONCE ONE Administration Metoclopramide HCl 10 mg 06/08/25 09:38 06/08/25 10:35 Metoclopramide Hcl 10 Mg/2 Ml Vial IVPUSH 06/08/25 09:39 10 mg ONCE ONE Administration Medical Decision Making Medical Decision Making MDM Narrative: Patient is a 64-year-old female presenting to the emergency department with complaint of headache since Sunday, nausea and vomiting since this morning. On exam patient is awake, A+Ox3, VS WNL, afebrile, normal neurological exam without focal deficits, physical exam findings as above. Given reported symptoms and physical exam findings, initial differential includes but is not limited to viral illness, covid, flu, bronchitis, atypical pneumonia. Viral serology negative. Patient now stating that she has actually had a cough on and off for the past month. See course for remainder of clinical decision making. Differential Diagnosis Differential Diagnoses: The differential diagnosis associated with the presentation includes As per [facility] Admission/Observation Consideration of admission/observation: Escalation of care including admission/observation considered Consult Healthcare Provider Management of the patient was discussed with: Hospitalist (LILIAN Lawrence) and Winter Sports Manager (Dr. Carter) Lab Data [facility] Lab Attestation statement: I reviewed the patient's lab results. as per [facility] Labs: Lab Results 06/08/25 Range/Units 07:51 COVID-19 (KEENAN) Negative (Negative) COVID-19 Clin Com See Note Influenza Type A (LORIE) Negative (Negative) Influenza Type B (LORIE) Negative (Negative) Influenza A & B Note See Note S. pyogenes GrpA LORIE Negative (Negative) Independent Interpretation I performed an independent interpretation of an: Plain X-Ray Interpretation: Chest x-ray notable for small right-sided pneumothorax Radiology Impression Discussion of test interpretation with radiology: I have reviewed the radiologist's reading. Radiologist Impression: XR/XR chest 2V IMPRESSION: Small volume right-sided pneumothorax. Findings communicated via [employer] text to nurse practitioner Harmony Mai on June 08, 2025 at 9:57 AM. External Record Review External record reviewed: Inpatient record, Office record and Outpatient record Critical Care Time Critical Care Time Critical Care Time: Yes Total Critical Care Time: 55 Attestation: I have personally provided critical care time exclusive of time spent on separately billable procedures. Time includes review of lab data, radiology results, discussion with consultants, and monitoring for potential decompensation. Intervention performed as documented. Discharge Plan Discharge Clinical Impression: Pneumothorax on right Patient Disposition: Admitted As Inpatient Interventions: Admission Worksheet (ED) Last Done: 06/08/25 12:05
[2025-06-08 09:13] LABS: IDNOW Serial# 08D9AD1C; Influenza B2 Negative (Negative)
--- NOTE | 2025-06-08 13:00 | PM.IMHP ---
History of Present Illness Date of Service: 06/08/25 Attending physician on admission: Doug Kay Chief Complaint: Headache Pt is a 64-year-old female without significant PMH other than mood disorder who presents to the ED with URI symptoms and persistent headache x3 days. Pt reports developed URI type symptoms including nonproductive cough, sore throat, and nasal congestion last week. Has been around sick contacts including her grandchildren who tested positive for flu. Pt went to urgent care on and was treated with amoxicillin for presumed strep throat when she tested negative for COVID and flu. Symptoms did not improve over the weekend, and pt developed persistent headache beginning on Sunday night. This morning pt had an episode of nausea and vomiting she attempted to take her amoxicillin. Given persistent and worsening symptoms pt elected to come into the hospital for further evaluation. Denies chest pain or pressure. No SOB or difficulty breathing. Denies pleuritic chest pain. No abdominal pain or diarrhea. In the ED pt's vitals were significant for tachycardia 106, otherwise stable and satting at 95% on RA.. Tested negative for COVID, flu, and RSV. CXR showed small volume right-sided pneumothorax but now consolidation. Pt was treated in the ED with metoclopramide, diphenhydramine, IVF, ketorolac, and doxycycline. Pt is admitted to the hospital under observation for monitoring of small pneumothorax. Review of Systems Review of Systems: Negative except for that which is stated in the HPI. [facility] Social History Patient Tobacco Use Status: Never used Tobacco Smoked in Last 30 Days: No Use of substances other than those prescribed or required for medical reasons: No Advance Directives: No Advance Directives Information Provided: No Do you have a plan to hurt others: No Plan Meds Allergies Allergy/AdvReac Type Severity Reaction Status Date / Time No Known Allergies Allergy Verified 06/08/25 07:44 N.K.D.A. Allergy Unknown unknown Uncoded 06/08/25 07:44 Pt states she might be AdvReac Unknown Gassiness Uncoded 06/08/25 07:44 lactose Home Medications ?Medication ?Instructions ?Recorded ?Confirmed ?Last Taken ?Type bupropion HCl 300 mg 24 hr tablet, 300 mg PO DAILY 04/05/23 06/08/25 06/07/25 History extended release citalopram 10 mg tablet 10 mg PO DAILY 04/05/23 06/08/25 06/07/25 History cetirizine 10 mg tablet (Zyrtec) 10 mg PO DAILY PRN Allergy Symptoms 10/20/23 06/08/25 Unknown History fluticasone propionate 50 1 spray intranasal DAILY PRN Nasal 10/20/23 06/08/25 Unknown History mcg/actuation nasal Congestion spray,suspension (Flonase Allergy Relief) alprazolam 0.25 mg tablet 0.25 mg PO DAILY PRN Anxiety 06/08/25 06/08/25 Unknown History amoxicillin 875 mg tablet 875 mg PO BID 06/08/25 06/08/25 06/07/25 History Physical Exam Vital Signs and Narrative: Vital Signs: Last Vital Signs Temp 98.2 F 06/08/25 10:41 Pulse 94 06/08/25 10:41 Resp 17 06/08/25 10:41 BP 141/94 H 06/08/25 10:41 Pulse Ox 95 06/08/25 10:41 O2 Del Method Room Air 06/08/25 10:41 BMI result Body Mass Index 30.0 General: AOx3, no acute distress resting comfortably in bed Resp: Coarse breath sounds bilaterally CVS: S1, S2, RRR GI: +BS, NT, no distention Skin: Warm, dry Neuro: Cranial nerves II-XII grossly intact bilaterally. Motor grossly intact bilaterally Extremities: No edema Psych: Appropriate affect Results Labs Labs: Laboratory Results - last 24 hr 06/08/25 07:51 COVID-19 (KEENAN) Negative COVID-19 Clin Com See Note Influenza Type A (LORIE) Negative Influenza Type B (LORIE) Negative Influenza A & B Note See Note S. pyogenes GrpA LORIE Negative Imaging Radiologist's Impressions: Impressions Chest X-Ray 06/08/25 09:51 IMPRESSION: Small volume right-sided pneumothorax. Findings communicated via [employer] connect text to nurse practitioner Harmony Mai on June 08, 2025 at 9:57 AM. Electronically signed by: Steve Wagoner MD 06/08/2025 09:[address] [facility] Chest CT 06/08/25 11:53 IMPRESSION: No pneumothorax seen. Chest tube was not placed. Electronically signed by: Sheyla Plascencia MD 06/08/2025 12:37 PM EST RP Assessment and Plan (1) Pneumothorax on right: Status: Acute Plan Pt is a 64-year-old female without significant PMH other than mood disorder who presents to the ED with URI symptoms x1 week and persistent headache x3 days. Pt is admitted to the hospital under observation for monitoring of small pneumothorax. Small right pneumothorax As seen on CXR Pt asymptomatic and not in respiratory distress: No SOB or pleuritic chest pain, not requiring supplemental O2 Will hold off on pigtail or pulm consult for now Monitor, repeat CXR tomorrow Incentive spirometry URI symptoms Likely viral in nature Tested negative for flu, COVID, RSV Will check full respiratory pathogen panel Symptomatic treatment Can continue previous amoxicillin prescription Mood disorder Continue bupropion, citalopram, and alprazolam Full Code Attending:?Dr. Kay DVT Prophylaxis: Lovenox Pt will be admitted to the hospital under observation for treatment and further evaluation of small right pneumothorax. Currently pt does not require any chest tube or supplemental oxygen. If patient's clinical picture deteriorates or pt becomes symptomatic, though admit as inpatient and place pigtail. Quality Stroke Does the patient have a stroke diagnosis?: No VTE Prior VTE?: No VTE Risk Level:: Medical - moderate - high VTE Device Contraindication: Treatment Not Indicated VTE Drug Contraindication: N/A - Med Ordered
--- NOTE | 2025-06-08 13:11 | PHA.MEDREC ---
Addendum entered by Sheridan Vo [facility] 06/08/25 14:17: MED REC REVIEWED BY [facility] Addendum entered by Robbin Mac 06/08/25 14:07: Patient taking Amoxicillin 875mg tabs BID for 10 days not QD. Original Note: Pharmacy Consult ? Medication Reconciliation Pharmacy has completed the medication reconciliation. Spoke with pt and she confirmed her medications. Pt confirmed she started an Amoxicillin 875mg tab once daily regimen 06/04 for 10 days.
[2025-06-08 15:24] LABS: Chlamydia pneumoniae PCR Not Detected (Not Detect.); Coronavirus 229E PCR Not Detected (Not Detect.); Coronavirus HKU1 PCR Not Detected (Not Detect.); Coronavirus NL63 PCR Not Detected (Not Detect.); Coronavirus OC43 PCR Not Detected (Not Detect.); RSV PCR Not Detected (Not Detect.); Rhino/Enterovirus PCR Not Detected (Not Detect.)
[2025-06-08 15:29] LABS: Influenza A H1 PCR Not Detected (Not Detect.); Influenza A H1-2009 PCR Not Detected (Not Detect.); Influenza A H3 PCR Not Detected (Not Detect.); SARS-CoV-2 PCR Not Detected (Not Detect.)
[2025-06-08] MEDS: Amoxicillin Oral Susp 400 mg/5 mL 75 mL SUSP.RECON 880 MG PO ×2 (15:43→21:57)
[2025-06-08] MEDS: 0.9 % Sodium Chloride Flush 3 ML SYRINGE IVFLUSH ×2 (15:44→22:00)
[2025-06-09 03:18] VITALS: BP 114/61; PULSE 93; RESP 18; TEMP 36.7; O2SAT 98
[2025-06-09 07:13] VITALS: BP 133/66; PULSE 84; RESP 15; TEMP 36.6; O2SAT 97
[2025-06-09] MEDS: buPROPion HCl XL 300 MG TAB.ER.24H PO (08:38)
[2025-06-09] MEDS: 0.9 % Sodium Chloride Flush 3 ML SYRINGE IVFLUSH (08:38)
[2025-06-09] MEDS: Amoxicillin Oral Susp 400 mg/5 mL 75 mL SUSP.RECON 880 MG PO (08:38)
[2025-06-09] MEDS: Flu Vacc TS2025-26(6mo up)/PF 0.5 ML SYRINGE IM (08:39)
--- NOTE | 2025-06-09 10:45 | P.DS_ITS ---
DS: Providers Provider Date of admission: 06/08/25 11:25 Date of discharge: 06/09/25 Primary care physician: Unknown Physician DS: Diagnosis Discharge Diagnosis (1) Pneumothorax on right: Status: Acute DS: Summary Hospital Course Hospital Course: From admission HPI: Date of Service: 06/08/25 Attending physician on admission: Doug Kay Chief Complaint: Headache Pt is a 64-year-old female without significant PMH other than mood disorder who presents to the ED with URI symptoms and persistent headache x3 days. Pt reports developed URI type symptoms including nonproductive cough, sore throat, and nasal congestion last week. Has been around sick contacts including her grandchildren who tested positive for flu. Pt went to urgent care on and was treated with amoxicillin for presumed strep throat when she tested negative for COVID and flu. Symptoms did not improve over the weekend, and pt developed persistent headache beginning on Sunday night. This morning pt had an episode of nausea and vomiting she attempted to take her amoxicillin. G iven persistent and worsening symptoms pt elected to come into the hospital for further evaluation. Denies chest pain or pressure. No SOB or difficulty breathing. Denies pleuritic chest pain. No abdominal pain or diarrhea. In the ED pt's vitals were significant for tachycardia 106, otherwise stable and satting at 95% on RA.. Tested negative for COVID, flu, and RSV. CXR showed small volume right-sided pneumothorax but now consolidation. Pt was treated in the ED with metoclopramide, diphenhydramine, IVF, ketorolac, and doxycycline. Pt is admitted to the hospital under observation for monitoring of small pneumothorax. Hospital course: Pt was admitted to the hospital after initially presenting with URI type symptoms and CXR showing small right-sided pneumothorax. Pt underwent CT of chest for possible pigtail placement, but this failed to demonstrate any pneumothorax and procedure was canceled. Repeat chest x-ray this morning also failed to redemonstrate any pneumothorax, and upon further review of CXR from the day prior thought that it showed a right lateral skin fold that mimicked a pneumothorax. Full respiratory panel was negative for viral or infectious etiologies. Pt currently feels well with no significant SOB, though continues to have occasional cough. She will be discharged home with prescription for benzonatate. Previously on amoxicillin for presumed strep throat, the patient's symptoms likely from respiratory virus and no indication to continue antibiotics at this time. Pt should continue to treat with supportive care, including getting plenty of rest, sleep, and fluids. Time Attestation Discharge Coordination Time (in mins): 35 Quality: Safe Use of Opioids Does Pt have an Active Cancer Diagnosis on the Problem List?: No Quality: Stroke Does the patient have a stroke diagnosis?: No Physical Exam Exam: Exam: General: AOx3, no acute distress Resp: CTA bilaterally. No wheezing, rhonchi, or rales noted. CVS: S1, S2, RRR GI: +BS, NT, no distention Skin: Warm, dry Neuro: Cranial nerves II-XII grossly intact bilaterally. Motor grossly intact bilaterally Extremities: No edema Psych: Appropriate affect Vital Signs: Vital Signs: Last Vital Signs Temp 97.9 F 06/09/25 07:13 Pulse 84 06/09/25 07:13 Resp 15 06/09/25 07:13 BP 133/66 06/09/25 07:13 Pulse Ox 97 06/09/25 07:13 O2 Del Method Room Air 06/09/25 07:13 BMI result Body Mass Index 30.0 DS: Data Data Completed and Pending Labs on day of discharge: Laboratory Results - last 24 hr 06/08/25 13:55 Respiratory Panel Eckert See Note Adenovirus (Rapid PCR) Not Detected B.pert (TEM-PCR) Not Detected B.parapertussis DNA PCR Not Detected C. pneumoniae DNA (PCR) Not Detected Coronavirus OC43 (PCR) Not Detected Coronavirus HKU1 (PCR) Not Detected Coronavirus 229E (PCR) Not Detected Coronavirus NL63 (PCR) Not Detected Human Metapneumovir PCR Not Detected Influenza A (RT-PCR) Not Detected Influenza A (H1) PCR Not Detected Influ A (H1/09) PCR Not Detected Influenza A (H3) PCR Not Detected Influenza B (RT-PCR) Not Detected M. pneumoniae (PCR) Not Detected Parainfluenza 1 (PCR) Not Detected Parainfluenza 2 (PCR) Not Detected Parainfluenza 3 (PCR) Not Detected Parainfluenza 4 (PCR) Not Detected RSV (PCR) Not Detected Entero/Rhino (PCR) Not Detected SARS-CoV-2 RNA (RT-PCR) Not Detected Discharge Plan Discharge Anticipated Discharge Date/Time: 06/09/25 10:18 Patient Disposition: Home, Self-Care Discharge Diagnosis: Right-sided pneumothorax Referrals: Physician,Unknown J [Primary Care Provider, Medical] - 1 Week Discharge Medications: New benzonatate 100 mg capsule 100 mg PO TID PRN (Reason: cough) Qty: 30 0RF Rx Instructions: Take one tablet up to three times a day for cough Continued amoxicillin 875 mg tablet 875 mg PO BID alprazolam 0.25 mg tablet 0.25 mg PO DAILY PRN (Reason: Anxiety) bupropion HCl 300 mg tablet extended release 24 hr 300 mg PO DAILY citalopram 10 mg tablet 10 mg PO DAILY cetirizine [Zyrtec] 10 mg tablet 10 mg PO DAILY PRN (Reason: Allergy Symptoms) fluticasone propionate [Flonase Allergy Relief] 50 mcg/actuation spray,suspension 1 spray intranasal DAILY PRN (Reason: Nasal Congestion) Rx Instructions: administer into each nostril albuterol sulfate 90 mcg/actuation aerosol powdr breath activated 2 inh inhalation Q6H PRN (Reason: shortness of breath or wheezing) Qty: 1 0RF Discharge Orders: Discharge Order (Routine); Ordered 06/09/25 Ordered By: Howard Su Activity on Discharge: As tolerated Stand Alone Forms: Patient Portal Discharge page Print Language: Tamazight Care Plan Goals: See below Health Concerns: Viral respiratory infection Pneumothorax Plan of Treatment: You were admitted to the hospital under observation after presenting with upper respiratory illness type symptoms and initial chest xray showing small right pneumothorax. You underwent chest CT that was negative repeat chest x-ray this morning that also failed to re-demonstrate pneumothorax. Full respiratory panel was negative for either bacterial or viral infection. -- you were previously prescribed amoxicillin for possible strep throat, but this can be stopped as you likely have a viral infection. Chest imaging was negative for underlying pneumonia. -- you will be prescribed benzonatate/Tessalon Perles for cough -- treat upper respiratory illness with supportive care -- get plenty of sleep, rest, and fluids Assessment: See discharge summary
--- NOTE | 2025-06-09 12:17 | MHC.CM.PN ---
PT DCD HOME SELF CARE
--- OUTSIDE RECORDS SUMMARY | 2025-06-16 09:43 | XMS_ITS | Patient Health Record ---
Author Organization [facility] Address [address] [place] [address] Care Team Providers Care Oyster Preparer Name Role Phone Facundo (RETIRED) Alejandro KAUR Primary Care Provide r Unavailable Alvaro Nava Unavailable [phone] Reason For Referral No Information Plan Of Treatment No Information Insurance Providers Payer Name Payer Address Payer Phone Subscriber Number Group Number Insured Name Patient Relationship to Insured Coverage Start Date Coverage End Date [facility] [address] [place] [address] [id number] KATHRYN MENSAH Self - patient is the insured Medical (General) History Medical History History ICD Code colonoscopy 12-16-2010 colon polyps mild asthma depression/anxiety Denies MT,DM,CVA,Lung disease,renal dise ase Surgical History Surgery Date(Month/Year) cholecystectomy
--- OUTSIDE RECORDS SUMMARY | 2025-06-16 09:43 | XMS_ITS | Clinical Summary ---
Author Organization [facility] Address [address] [place] [address] Phone Care Team Providers Care Sandstone Splitter Name Role Phone Angie Gilbert DEXTER Primary [...] Overview (06/16/2024): Followed by Kelton Hugo at [facility]. Assessment & Plan (09/15/2024 8:54 AM EDT): [...] AM EDT): Discussed prior referral placed to [facility] Weight Management. She will call and schedule. Strongly encouraged to work on lifestyle modifications. Assessment & Plan (06/16/2024 9:07 AM EST): Discussed history of obesity, previously worked with Weight Management with good success. She is interested in doing this again and considering medication assistance. Referral placed to [facility] Weight Management today. Immunizations Immunization Administration Dates [...] high school, GED, job training, learning the Georgian language, technical skills, or developing parenting skills)? [...] (09/15/2024 8:37 AM EDT) HDL 70 mg/dL [facility] Comment: Interpretation <40 mg/dL: Low HDL cholesterol (major risk factor for CHD) Greater than or equal to 60 mg/dL: High HDL cholesterol ( negative risk factor for CHD) HDL - cholesterol is affected by a number of factors, e.g. smoking, excerise, hormones, sex and age. CHOLESTEROL 258(H) 0 - 240 mg/dL [facility] TRIGLYCERIDES 99 30 - 160 mg/dL [facility] LDL 168(H) 50 - 129 mg/dL [facility] Comment: LDL levels in terms of risk for coronary heart disease: <100 mg/dL: Optimal 100-129 mg/dL: Near or above optimal 130-159 mg/dL: Borderline high 160-189 mg/dL: High >190 mg/dL: Very High CARDIAC RISK RATIO 3.7 3.3 - 4.4 C [facility] Blood 09/15/2024 8:37 AM EDT 09/15/2024 8:41 AM EDT us Angie Gilbert LEGAL RECOVERY SPECIALIST LAB BLOOD BKR ORDERABLES Fin al Result [facility] [address] [place] [address] * COLONOSCOPY FOR RESULT ENTRY ONLY (08/04/2024) Colonoscopy external us Historical Provider MD HEALTH MAINTENANCE Final Result from Last 3 Months or Most Recently Relevant to Health Maintenance Insurance [facility] [place] [address] [place] [address] [place] [address] [place] [address] [facility] Care Teams Sandstone Splitter Relationship Specialty Start Date End Date Angie Gilbert CNP [address] [place] [address], [address] [place], [place] [id number] [email or web address] PCP - General Nurse Practitioner 09/13/24 Additional Source Comments The information contained in this document represents components of the legal health record. It is not the complete legal health record.[facility]
== END 2025-06-09 12:00 | disposition home or self-care (01) ==
LOC: HO.ED 11:29 → HO.EDOVER 12:05 → HO.S3 06-09 10:21 → HO.EDOVER 06-16 09:08 → HO.S3 06-16 09:08
PROVIDERS: Radiology Diagnostic Radiology; Admitting Provider Student in an Organized Health Care Education/Training Program; Emergency Provider Student in an Organized Health Care Education/Training Program; Visit Provider Student in an Organized Health Care Education/Training Program
PROC: (CPT 32551; principal; 2025-06-08 11:30)
DX: R51.9 Headache, unspecified (principal); R91.8 Other nonspecific abnormal finding of lung field; R11.2 Nausea with vomiting, unspecified; J02.9 Acute pharyngitis, unspecified; R05.9 Cough, unspecified; R09.81 Nasal congestion; R00.0 Tachycardia, unspecified; F39 Unspecified mood [affective] disorder; Z03.818 Encounter for observation for suspected exposure to other biological agents ruled out; Z23 Encounter for immunization; Z79.899 Other long term (current) drug therapy
CPT/HCPCS: 71045; 71046; 71250; 87502; 87633; 87635; 87651; 90471; 90656; 96365; 96366; 96372; 96375; 99221; 99285; J1200; J1271; J1650; J1885; J2765

== ENCOUNTER → 2025-06-08 09:46 | Outpatient (BNV) | payer MEDICARE, SELFPAY | PROVIDERS: Emergency Provider Student in an Organized Health Care Education/Training Program; Visit Provider Radiology Diagnostic Radiology | DX: Z03.89 Encounter for observation for other suspected diseases and conditions ruled out (principal) | CPT/HCPCS: 71046; 71250 ==

== ENCOUNTER 2025-06-08 11:25 | Outpatient (BNV) | payer MEDICARE, SELFPAY | END 2025-06-09 09:12 | PROVIDERS: Admitting Provider Student in an Organized Health Care Education/Training Program; Emergency Provider Student in an Organized Health Care Education/Training Program; Visit Provider Radiology Diagnostic Radiology | DX: J93.83 Other pneumothorax (principal) | CPT/HCPCS: 71045 ==

== ENCOUNTER → 2025-06-08 11:25 | Outpatient (BNV) | payer MEDICARE, SELFPAY | PROVIDERS: Admitting Provider Student in an Organized Health Care Education/Training Program; Emergency Provider Student in an Organized Health Care Education/Training Program; Visit Provider Student in an Organized Health Care Education/Training Program | DX: J06.9 Acute upper respiratory infection, unspecified (principal) | CPT/HCPCS: 99239 ==

== ENCOUNTER 2025-06-10 11:05 | Emergency (ER) | payer MEDICARE, SELFPAY ==
--- NOTE | ~2025-06-10 | XR_ITS ---
EXAMINATION: XR HAND 3 OR MORE VIEWS LEFT HISTORY: fall onto outstretched hands COMPARISON: There are no prior studies available for comparison. FINDINGS: Three views of the left hand are submitted. Osseous mineralization is normal. There is no fracture or dislocation. There is severe osteoarthritis of the 1st carpometacarpal joint, with joint space narrowing and osteophyte formation. The soft tissues are unremarkable. XR/XR hand LT min 3V IMPRESSION: Severe osteoarthritis of the 1st carpometacarpal joint. No evidence of fracture of the left hand. Electronically signed by: Alvaro Watters MD 06/10/2025 11:31 AM ZEV
--- NOTE | ~2025-06-10 | XR_ITS ---
EXAMINATION: XR KNEE 4 OR MORE VIEWS RIGHT HISTORY: fall COMPARISON: There are no prior studies available for comparison. FINDINGS: Five views of the right knee are submitted. Osseous mineralization is normal. There is no fracture or dislocation. There is mild degenerative change of the medial compartment with joint space narrowing and osteophyte formation. The soft tissues are unremarkable. There is no joint effusion. XR/XR knee RT 4V IMPRESSION: Mild degenerative change of the medial compartment. No evidence of fracture of the right knee. Electronically signed by: Alvaro Watters MD 06/10/2025 11:33 AM ZEV
--- NOTE | ~2025-06-10 | XR_ITS ---
EXAMINATION: XR WRIST, LEFT CLINICAL INFORMATION: fall onto outstretched hands COMPARISON: None available. TECHNIQUE: PA, lateral, oblique, and scaphoid views of the left wrist. FINDINGS: Moderate degenerative changes are present at the first CMC joint with sclerosis, subchondral cystic change, and osteophytes. There is no joint diastases or step-off. No fracture line is demonstrated. XR/XR wrist LT w scaphoid IMPRESSION: No acute bony abnormality. Moderate first CMC joint osteoarthritis. Electronically signed by: Emmanuel Hamilton MD 06/10/2025 11:33 AM EST
--- NOTE | ~2025-06-10 | XR_ITS ---
EXAMINATION: XR KNEE, LEFT CLINICAL INFORMATION: fall COMPARISON: 09/29/2024. TECHNIQUE: Four views of the left knee. FINDINGS: No fracture, dislocation, or suspicious bone lesion. Normal bone mineralization. Normal alignment. Joint spaces are preserved. Mild tricompartmental joint space narrowing and marginal spurring. Mild spurring of the tibial spines. No significant joint effusion. Soft tissues appear normal. XR/XR knee LT 4V IMPRESSION: 1. No acute bony or soft tissue abnormality. No evidence of joint effusion. 2. Mild tricompartmental osteoarthrosis. Electronically signed by: Beto Sanchez MD 06/10/2025 11:33 AM EST
--- NOTE | 2025-06-10 11:12 | ED_ITS ---
HPI - General Adult General Chief complaint: Extremity Injury, Upper Stated complaint: fell 1 hr ago, L hand/ side pain Time Seen by Provider: 06/10/25 12:24 Source: patient Mode of arrival: ambulatory Limitations: no limitations History of Present Illness ED Provider: Rae Delgado PA-C HPI narrative: Patient is a 64 year old female with a history of recent pneumothorax presenting to the emergency department today with left hand pain after a trip and fall. Patient states that she was walking today when she tripped and fell on an uneven side walk, landing on her left upper extremity. Patient states that since then she has had left hand + thumb pain. Patient states that she is left hand dominant. Patient denies any other complaints at this time. Related Data Home Medications ?Medication ?Instructions ?Recorded ?Confirmed bupropion HCl 300 mg 24 hr tablet, 300 mg PO DAILY 06/1606/08/25 extended release citalopram 10 mg tablet 10 mg PO DAILY 04/05/2305/25 cetirizine 10 mg tablet (Zyrtec) 10 mg PO DAILY PRN Al lergy Symptoms 10/20/23 06/08/25 fluticasone propionate 50 1 spray intranasal DAILY PRN Nasal 10/20/23 06/08/25 mcg/actuation nasal Congestion spray,suspension (Flonase Allergy Relief) alprazolam 0.25 mg tablet 0.25 mg PO DAILY PRN Anxiety 06/08/25 06/08/25 amoxicillin 875 mg tablet 875 mg PO BID 06/08/2506/08 Previous Rx's ?Medication ?Instructions ?Recorded albuterol sulfate 90 mcg/actuation 2 inh inhalation Q6 H PRN shortness 10/20/23 breath activated powder inhaler of breath or wheezing #1 ea benzonatate 100 mg capsule 100 mg PO TID PRN cough #30 caps 06/09/25 Allergies Allergy/AdvReac Type Severity Reaction Status Date / Time No Known Allergies Allergy Verified 06/10/25 11:14 N.K.D.A. Allergy Unknown unknown Uncoded 06/10/25 11:14 Pt states she might be AdvReac Unknown Gassiness Uncoded 06/10/25 11:14 lactose Review of Systems Constitutional: Constitutional: Reports as per HPI Eyes: Eyes: Reports as per HPI ENT: Reports as per HPI Cardiovascular: Cardiovascular: Reports as per HPI Respiratory: Respiratory: Reports as per HPI Gastrointestinal: Gastrointestinal: Reports as per HPI Genitourinary: Genitourinary: Reports as per HPI Musculoskeletal: Musculoskeletal: Reports as per HPI Integumentary/Breasts: Skin/Breast: Reports as per HPI Neurologic: Reports as per HPI Psychiatric: Psychiatric: Reports as per HPI Endocrine: Endocrine: Reports as per HPI Hematologic/Lymphatic: Hematologic/Lymphatic: Reports as per HPI Allergic/Immunologic: Allergic/Immunologic: Reports as per HPI [facility] Past Medical History Attestation statement: The following information was validated with the patient. Source: old records reviewed and nursing notes reviewed Social History Social History Patient Tobacco Use Status: Never used Tobacco Advance Directives: No Advance Directives Information Provided: Yes Physical Exam ED Vital Signs: Vital Signs - 24 hr 06/10/25 11:13 06/10/25 12:41 Temperature 98 F 98 F Pulse Rate 95 95 Respiratory Rate 18 18 Blood Pressure 135/79 135/79 Pulse Oximetry 96 96 Oxygen Delivery Method Room Air Room Air BMI result Body Mass Index 30.0 Const General: cooperative, no acute distress, alert and awake Nutritional Appearance: well nourished Orientation/consciousness: patient oriented x3 HENMT Head: Yes normal to inspection and Yes atraumatic Ears: hearing grossly normal bilaterally and external ears normal General nose exam: Normal external nose present, no nasal discharge noted and no epistaxis Face and sinus: Yes normal facial exam, No abrasion and No laceration Mouth: Normal oral and palatal mucosa present, no drooling and no muffled voice Eyes General: appearance normal, both eyes and all related structures Periorbital: periorbital findings normal Eyelids: Yes eyelids normal Conjunctivae: conjunctivae normal Pupils: Equal, round and reactive pupils present EOM: EOMs intact bilaterally Neck Neck: Yes normal visual inspection and Yes full ROM Resp Effort & Inspection: normal respiratory effort and able to speak in complete sentences Neuro General: patient oriented x3, moves all extremities and CN's II-XI intact bilaterally Cranial nerves: Yes Equal, round and reactive pupils present Cognition (Neuro): normal cognition Extrem Other: Patient has normal ROM of the left wrist Patient unable to touch left thumb tip to left finger tips General: Yes normal to inspection and Yes capillary refill normal Psych Appearance: grossly normal Mental Status: mental status grossly normal Affect: normal affect Attitude: cooperative Thought process: Normal thought process present Thought content: Normal thought content present Insight: Good insight present (Psych) Course Course Course Narrative: This is a rapid medical exam performed by Blane Mai NP: Additional HPI, ROS, PE not included below will be deferred to primary provider. Patient is a 64y/o left hand dominant F presenting with complaint of left hand and wrist pain as well as bilateral knee pain after trip and fall on sidewalk due to uneven sidewalk. Denies head strike or LOC. Helped up by bystanders. Plan: imaging Medications Administered Discontinued Medications Generic Name Dose Route Start Last Admin Trade Name Freq PRN Reason Stop Dose Admin Acetaminophen 650 mg 06/10/25 11:15 06/10/25 11:18 Acetaminophen 325 Mg Tablet PO 06/10/25 11:16 650 mg ONCE ONE Administration Ibuprofen 600 mg 06/10/25 11:15 06/10/25 11:19 Ibuprofen 600 Mg Tablet PO 06/10/25 11:16 600 mg ONCE ONE Administration Procedures Orthopedic Splinting/Casting L thumb sprain: Side: left Upper Extremity Injury Location: hand Upper Extremity Immobilizer: thumb spica Medical Decision Making Medical Decision Making MDM Narrative: Patient is a 64 year old female with a history of recent pneumothorax presenting to the emergency department today with left hand pain after a trip and fall. Patient's physical exam was as noted in the physical exam portion of this note and concerning for a thumb sprain vs. ulnar collateral ligament injury. Patient's bilateral knee x-rays, ordered by the provider in triage, showed no acute process. Patient's left wrist and hand x-ray showed no acute process. I explained my physical exam findings as well as all test results to the patient. I answered all questions asked by the patient. Patient's left hand / thumb was placed in a thumb spica velcro splint, without incident. Patient's PMS was intact prior to and after splint placement. I stressed the importance of the patient taking her medication as directed (either prescribed or as the over the counter packaging recommends). I stressed the importance of the patient following up with her primary care provider and the orthopedic team. I stressed the importance of the patient returning to the emergency department immediately if her symptoms were to worsen or if she were to develop any dizziness, shortness of breath, difficulty breathing, chest pain, blurry vision, loss of vision, nausea, vomiting, abdominal pain, fever, chills, back pain, or any other complaints. Patient verbalized agreement and understanding with this treatment plan and discharge. Differential Diagnosis Differential Diagnoses: The differential diagnosis associated with the presentation includes UCL injury Wrist sprain Wrist strain Hand sprain Hand strain Thumb sprain Thumb strain Admission/Observation Consideration of admission/observation: Escalation of care including admission/observation considered Patient would have been admitted to the hospital had her work up had any findings where hospital admission was appropriate and her clinical presentation warranted hospital admission. Independent Interpretation I performed an independent interpretation of an: Plain X-Ray Interpretation: My interpretation is in agreement with the radiologist's impression of these imaging studies as written below. EXAMINATION: XR HAND 3 OR MORE VIEWS LEFT HISTORY: fall onto outstretched hands COMPARISON: There are no prior studies available for comparison. FINDINGS: Three views of the left hand are submitted. Osseous mineralization is normal. There is no fracture or dislocation. There is severe osteoarthritis of the 1st carpometacarpal joint, with joint space narrowing and osteophyte formation. The soft tissues are unremarkable. XR/XR hand LT min 3V IMPRESSION: Severe osteoarthritis of the 1st carpometacarpal joint. No evidence of fracture of the left hand. Electronically signed by: Alvaro Watters MD 06/10/2025 11:31 AM EST Dictated By: Alvaro Watters MD Signed By: Electronically signed by Alvaro Watters MD 06/10/25 1131 Reason for Exam: fall onto outstretched hands EXAMINATION: XR WRIST, LEFT CLINICAL INFORMATION: fall onto outstretched hands COMPARISON: None available. TECHNIQUE: PA, lateral, oblique, and scaphoid views of the left wrist. FINDINGS: Moderate degenerative changes are present at the first CMC joint with sclerosis, subchondral cystic change, and osteophytes. There is no joint diastases or step-off. No fracture line is demonstrated. XR/XR wrist LT w scaphoid IMPRESSION: No acute bony abnormality. Moderate first CMC joint osteoarthritis. Electronically signed by: Emmanuel Hamilton MD 06/10/2025 11:33 AM EST Dictated By: Emmanuel Hamilton MD Signed By: Electronically signed by Emmanuel Hamilton MD 06/10/25 1133 Reason for Exam: fall EXAMINATION: XR KNEE 4 OR MORE VIEWS RIGHT HISTORY: fall COMPARISON: There are no prior studies available for comparison. FINDINGS: Five views of the right knee are submitted. Osseous mineralization is normal. There is no fracture or dislocation. There is mild degenerative change of the medial compartment with joint space narrowing and osteophyte formation. The soft tissues are unremarkable. There is no joint effusion. XR/XR knee RT 4V IMPRESSION: Mild degenerative change of the medial compartment. No evidence of fracture of the right knee. Electronically signed by: Alvaro Watters MD 06/10/2025 11:33 AM EST RP Dictated By: Alvaro Watters MD Signed By: Electronically signed by Alvaro Watters MD 06/10/25 1133 EXAMINATION: XR KNEE, LEFT CLINICAL INFORMATION: fall COMPARISON: 09/29/2024. TECHNIQUE: Four views of the left knee. FINDINGS: No fracture, dislocation, or suspicious bone lesion. Normal bone mineralization. Normal alignment. Joint spaces are preserved. Mild tricompartmental joint space narrowing and marginal spurring. Mild spurring of the tibial spines. No significant joint effusion. Soft tissues appear normal. XR/XR knee LT 4V IMPRESSION: 1. No acute bony or soft tissue abnormality. No evidence of joint effusion. 2. Mild tricompartmental osteoarthrosis. Electronically signed by: Beto Sanchez MD 06/10/2025 11:33 AM EST Dictated By: Beto Sanchez MD Signed By: Electronically signed by Beto Sanchez MD 06/10/25 1133 Radiology Impression Discussion of test interpretation with radiology: I have reviewed the radiologist's reading. Discharge Plan Discharge Clinical Impression: Left thumb sprain Patient Disposition: Home, Self-Care Instructions: Sprain (ED), Skier's Thumb (ED) Additional Instructions: Your x-rays today showed no evidence of fracture/break. I am concerned you injured the left thumb vs. the left ulnar collateral ligament. If you have any change in sensation, movement, or color of your left hand / thumb - you should loosen or remove the thumb spica splint, .immediately Follow up with your primary care provider and the orthopedic team. Return to the emergency department immediately if your symptoms worsen or if you develop any numbness, tingling, dizziness, shortness of breath, difficulty breathing, chest pain, blurry vision, loss of vision, nausea, vomiting, abdominal pain, fever, chills, back pain, or any other complaints. If you do not have a primary care provider - call any of the below numbers to establish and follow up with a primary care provider. [facility] Primary Care ([place]) [phone] [place] [address], [address] [facility] Primary Care ([address] [place]) [phone] [place] [address], [address] [facility], [address] [facility] Primary Care ([address] [place]) [phone] [place] [address], [address] [facility], [address] [facility] Primary Care ([place] [facility]) [phone] [place] [address], [address] [facility], [address] [facility] Family Medicine [phone] [place] [address], [address] Please see the information below about our Patient Portal. If you are not yet enrolled in the [facility] Patient Portal, you will receive an enrollment email invitation following your visit to any [facility] setting. You may also self-enroll in the Patient Portal by visiting our website: [email or web address] The following information is required to access the Patient Portal: - Your [facility] Medical Record Number - Your personal home email address (must match what is in your electronic medical record, Registration staff can assist with this) - Name - Date of Capabilities of the Patient Portal: - Message some providers - View upcoming appointments - Access your health summary, medical history, and visit history - View current conditions and allergies - View procedure and lab results - View your medications, including guidelines, side effects, and precautions - Complete pre-appointment questionnaires requested by your provider - Ready summary reports of your office visits and procedures To access the Patient Portal Mobile [employer], follow these directions: - Search SecureAlert in the [employer] Store or [employer] Store - Download the [employer] - Search for [facility] - Enter your login/password Prescriptions: No Action amoxicillin 875 mg tablet 875 mg PO BID alprazolam 0.25 mg tablet 0.25 mg PO DAILY PRN (Reason: Anxiety) benzonatate 100 mg capsule 100 mg PO TID PRN (Reason: cough) Qty: 30 0RF Rx Instructions: Take one tablet up to three times a day for cough bupropion HCl 300 mg tablet extended release 24 hr 300 mg PO DAILY citalopram 10 mg tablet 10 mg PO DAILY cetirizine [Zyrtec] 10 mg tablet 10 mg PO DAILY PRN (Reason: Allergy Symptoms) fluticasone propionate [Flonase Allergy Relief] 50 mcg/actuation spray,suspension 1 spray intranasal DAILY PRN (Reason: Nasal Congestion) Rx Instructions: administer into each nostril albuterol sulfate 90 mcg/actuation aerosol powdr breath activated 2 inh inhalation Q6H PRN (Reason: shortness of breath or wheezing) Qty: 1 0RF Referrals: [facility] Orthopedic Surgeons [Provider Group] Referral Note: Call to establish and follow up with the orthopedic team for your left thumb / UCL injury. Interventions: ED Discharge Assessment Last Done: 06/10/25 12:41 Discharge Date/Time: 06/10/25 12:49 Print Language: Paraguayan
[2025-06-10 11:13] VITALS: BP 135/79; PULSE 95; RESP 18; TEMP 36.6; O2SAT 96
[2025-06-10 12:41] VITALS: BP 135/79; PULSE 95; RESP 18; TEMP 36.6; O2SAT 96
--- OUTSIDE RECORDS SUMMARY | 2025-06-10 15:58 | XMS_ITS | Clinical Summary ---
Author Organization [facility] Address [address] [place] [id number] Phone Care Team Providers Care Canvas Shop Laborer Name Role Phone Angie Gilbert DEXTER Primary Care Provider Allergies No known active allergies Medications albuterol 90 mcg/actuation inhaler INHALE 1 PUFF INTO THE LUNGS THREE TIMES DAILY FOR THE FIRST 3 DAYS THEN NEEDED 4 Active ALPRAZolam (XANAX) 0.25 MG tablet Take 1 tablet by mouth once as needed for anxiety. 4 Active buPROPion (WELLBUTRIN XL) 300 MG ER 24 hr tablet Take 300 mg by mouth every morning. 4 Active citalopram (CELEXA) 10 MG tablet Take 10 mg by mouth nightly at bedtime. 4 Active fluticasone propionate (FLONASE) 50 mcg/actuation nasal spray 1 spray by Nasal route as needed for rhinitis. Active budesonide (PULMICORT FLEXHALER) 90 mcg/actuation inhalerIndication s:Mild intermittent asthma without complication Inhale 1 puff into the lungs 2 (two) times a day. 1 each 1 5 Active Active Problems Problem Noted Date Diagnosed Date Mixed hyperlipidemia 09/15/2024 Assessment & Plan (09/15/2024 8:59 AM EDT): Again discussed very elevated LDL and recommendation to begin medication. She declines. She will go for repeat labs today though has not made any significant lifestyle changes. Depression with anxiety 06/16/2024 Overview (06/16/2024): Followed by Kelton Hugo at [facility]. Assessment & Plan (09/15/2024 8:54 AM EDT): Stable, well managed on citalopram 10mg, Wellbutrin 300mg, and alprazolam 0.25mg PRN at night. She sees a therapist weekly. Denies SI/HI. Will continue to monitor. Assessment & Plan (06/16/2024 9:06 AM EST): Stable, well managed on citalopram 10mg, Wellbutrin 300mg, and alprazolam 0.25mg PRN at night. She sees a therapist weekly. Denies SI/HI. Will continue to monitor. Mild intermittent asthma without complication Assessment & Plan (09/15/2024 8:56 AM EDT): She is experiencing more wheezing and cough. Worsened following COVID infection. I have recommended beginning ICS as maintenance inhaler. Educated on medication administration, benefits, risks, and side effects profile. Encouraged to follow up if symptoms not improving with this treatment plan. Assessment & Plan (06/16/2024 9:06 AM EST): Stable, well managed on albuterol rarely PRN. Will continue this medication. Class 1 obesity due to exces s calories without serious comorbidity in adult 06/16/2024 Assessment & Plan (09/15/2024 8:59 AM EDT): Discussed prior referral placed to [facility] Weight Management. She will call and schedule. Strongly encouraged to work on lifestyle modifications. Assessment & Plan (06/16/2024 9:07 AM EST): Discussed history of obesity, previously worked with Weight Management with good success. She is interested in doing this again and considering medication assistance. Referral placed to [facility] Management today. Immunizations Immunization Administration Dates Next Due INFLUENZA, SPLIT VIRUS, TRIVALENT PF 06/16/2024 Tdap 09/15/2024,06/27/2011 Family History Medical History Relation Comments Diabetes Father Diabetes Mother Colon cancer Paternal Grandfather Diabetes Paternal Grandmother Relation Status Comments Father Mother Paternal Grandfather Paternal Grandmother Social History Tobacco Use Types Packs/Day Years Used Date Smoking Tobacco: Never Passive Smoke Exposure: Never Smokeless Tobacco: Never Tobacco Cessation:Counseling Given: Not Answered Alcohol Use Standard Drinks/Week Comments Not Currently 0 (1 standard drink = 0.6 oz pur e alcohol) Child or Family Care Answer Date Record ed Do you have problems with on e of the following making it difficult for you to work, study, or receive health care? No 06/09/2024 Education Answer Date Recorded Are you interested in help w ith more adult education (for example, completing high school, GED, job training, learning the Faroese language, technical skills, or developing parenting skills)? No 06/09/2024 Are you concerned about learning? Not on file 06/09/2024 No 06/09/2024 Yes 06/09/2024 Food Answer Date Recorded Within the past 6 months we worried whether our food would run out before we got money to buy more. Never True 06/09/2024 Within the past 6 months the food we bought just didn't last and we didn't have enough money to get more. Never True Residential Stability Answer Date Recor ded What is your housing situation today? I am stayi ng with others 06/09/2024 How many times have you move d in the past 12 months? One time 06/09/2024 Paying for Meds Answer Date Recorded Do you have trouble paying for medicines? No 06/09/2024 Paying Utility Bills Answer Date Record ed Do you have trouble paying your heating or elect ricity bill? No 06/09/2024 Transportation Answer Date Recorded Has the lack of transportati on kept you from medical appointments or from getting medications? No 06/09/2024 Digital Access Answer Date Recorded No 06/09/2024 Yes 06/09/2024 Do you have reliable internet access at home? Ye s 06/09/2024 Do you have a device (e.g., phone, tablet, computer) with a working camera? Yes 06/09/2024 Intimate Partner Violence Answer Date R ecorded Denied Basic Needs Not on file 09/09/2024 In the past 12 months have y ou been in a relationship with a person who hurts, threatens, or tries to control you? No 09/09/2024 Worried food would run out Not on file 09/09 In the past 12 months have y ou been in a relationship with a person who hurts, threatens, or tries to control you? No 09/09/2024 Comments Unknown Sex and Gender Information Value Date Recorded Sex Assigned at Not on file Legal Sex Female 11:01 AM EDT Gender Identity Not on file Sexual Orientation Not on file Last Filed Vital Signs Vital Sign Reading Time Taken Comments Blood Pressure 104/78 09/15/2024 8:00 AM EDT Pulse 78 09/15/2024 8:00 AM EDT Temperature 36.5 C (97.7 F) 09/15/2024 8:00 AM EDT Respiratory Rate - - Oxygen Saturation 97% 09/15/2024 8:00 AM EDT Inhaled Oxygen Concentration - - Weight 88.5 kg (195 lb) 09/15/2024 8:00 AM EDT Height 160 cm (5' 3 ) 09/15/2024 8:00 AM EDT Body Mass Index 34.54 09/15/2024 8:00 AM EDT Plan of Treatment Health Maintenance Due Date Last Done Comments HEPATITIS C SCREENING 11/08/1977 HIV ONE-TIME SCREENING (18-6 5 YEARS) 11/08/1977 PNEUMOCOCCAL VACCINES (50+ years) (1 of 2 - PCV) 11/08/1978 COLOGUARD 11/08/2004 FIT TEST 11/08/2004 FOBT 11/08/2004 SIGMOIDOSCOPY 11/08/2004 VIRTUAL COLONOSCOPY 11/08/2004 RSV VACCINE (1 - Risk 50-74 years 1-dose series) 11/08/2009 ZOSTER VACCINES (1 of 2) 11/08/2009 OSTEOPOROSIS SCREENING INITI AL (ONE-TIME) 11/08/2024 INFLUENZA VACCINE (#1) 2025 06/16/2024 COVID-19 VACCINE (3 - 2024-2 6 season) 2025 05/26/2023, 10/02/2020 DEPRESSION SCREENING 09/09/2025 09/09/2024 MAMMOGRAM 06/16/2026 06/16/2024 SCREENING FOR DIABETES 06/16/2027 , 06/16/2024 LIPID PANEL 09/15/2029 09/15/2024, 06/16/2024 COLONOSCOPY 08/04/2031 08/04/2024 COLORECTAL CANCER SCREENING 08/04/2031 Adult Td,Tdap Booster 09/15/2034 09/15/2024 , 06/27/2011 SMOKING STATUS SCREENING (On ce After 26 Yrs) Completed 09/15/2024 HEPATITIS A VACCINES Aged Out No long er eligible based on patient's age to complete this topic HIB VACCINES Aged Out No longer eligi ble based on patient's age to complete this topic MENINGOCOCCAL VACCINES (ACWY) Aged Out No longer eligible based on patient's age to complete this topic MENINGOCOCCAL VACCINES (B) Aged Out N o longer eligible based on patient's age to complete this topic Medical Devices Not on file Procedures Procedure Name Priority Date/Time Associated Diagnosis Comments LIPID PANEL Routine 09/15/2024 8:37 AM EDT Mixed hyperlipidemia HM COLONOSCOPY FOR RESULT ENTRY ONLY Routine 08/04/2024 BI MAMMOGRAM SCREENING (BILATERAL) Routine 06/16/2024 8:58 AM EST Encounter for screening mammogram for malignant neoplasm of breast from Last 3 Months or Most Recently Relevant to Health Maintenance Results * (ABNORMAL) Lipid panel (09/15/2024 8:37 AM EDT) HDL 70 mg/dL [facility] Comment: Interpretation <40 mg/dL: Low HDL cholesterol (major risk factor for CHD) Greater than or equal to 60 mg/dL: High HDL cholesterol ( negative risk factor for CHD) HDL - cholesterol is affected by a number of factors, e.g. smoking, excerise, hormones, sex and age. CHOLESTEROL 258(H) 0 - 240 mg/dL [facility] TRIGLYCERIDES 99 30 - 160 mg/dL [facility] LDL 168(H) 50 - 129 mg/dL [facility] Comment: LDL levels in terms of risk for coronary heart disease: <100 mg/dL: Optimal 100-129 mg/dL: Near or above optimal 130-159 mg/dL: Borderline high 160-189 mg/dL: High >190 mg/dL: Very High CARDIAC RISK RATIO 3.7 3.3 - 4.4 C [facility] Blood 09/15/2024 8:37 AM EDT 09/15/2024 8:41 AM EDT us Angie Gilbert COMMERCIAL TELLER LAB BLOOD BKR ORDERABLES Fin al Result [facility] [address] [place] [address] * COLONOSCOPY FOR RESULT ENTRY ONLY (08/04/2024) Colonoscopy external us Historical Provider MD HEALTH MAINTENANCE Final Result from Last 3 Months or Most Recently Relevant to Health Maintenance Insurance [facility] [place] [place] [address] [place] [address] [place] [address] [facility] Care Teams Canvas Shop Laborer Relationship Specialty Start Date End Date Angie Gilbert CNP [address] [place] [address], [address] [place], [place] [id number] [email or web address] PCP - General Nurse Practitioner 09/13/24 Additional Source Comments The information contained in this document represents components of the legal health record. It is not the complete legal health record.[facility]
--- OUTSIDE RECORDS SUMMARY | 2025-06-10 15:58 | XMS_ITS | Patient Health Record ---
Author Organization [facility] Address [address] [place] [address] Care Team Providers Care Clothing Cutter Name Role Phone Facundo (RETIRED) Alejandro KAUR Primary Care Provide r Unavailable Alvaro Nava Unavailable [phone] Reason For Referral No Information Plan Of Treatment No Information Insurance Providers Payer Name Payer Address Payer Phone Subscriber Number Group Number Insured Name Patient Relationship to Insured Coverage Start Date Coverage End Date [facility] [address] [place] [phone] [id number] KATHRYN MENSAH Self - patient is the insured Medical (General) History Medical History History ICD Code colonoscopy 12-16-2010 colon polyps mild asthma depression/anxiety Denies ND,DM,CVA,Lung disease,renal dise ase Surgical History Surgery Date(Month/Year) cholecystectomy
== END 2025-06-10 12:49 | disposition home or self-care (01) ==
PROVIDERS: Emergency Provider Emergency Medicine Emergency Medical Services
DX: S63.602A Unspecified sprain of left thumb, initial encounter (principal); M25.562 Pain in left knee; M25.532 Pain in left wrist; M79.642 Pain in left hand; W01.0XXA Fall on same level from slipping, tripping and stumbling without subsequent striking against object, initial encounter; Y93.01 Activity, walking, marching and hiking; Y92.9 Unspecified place or not applicable; Y99.8 Other external cause status; Z79.899 Other long term (current) drug therapy
CPT/HCPCS: 29130; 73110; 73130; 73564; 99283

== ENCOUNTER → 2025-06-10 11:12 | Outpatient (BNV) | payer MEDICARE, SELFPAY | PROVIDERS: Visit Provider Radiology Diagnostic Radiology | DX: M19.032 Primary osteoarthritis, left wrist (principal); Z04.3 Encounter for examination and observation following other accident | CPT/HCPCS: 73110 ==

== ENCOUNTER 2025-06-21 11:50 | Emergency (ER) | payer MEDICARE, SELFPAY ==
--- NOTE | ~2025-06-21 | XR_ITS ---
CLINICAL HISTORY: lightheadedness 2 view chest x-ray Comparison: CR/SR - XR CHEST 1 VIEW - 06/09/25 09:10 EST Findings: No consolidation or effusion. Normal size heart. No acute fracture. IMPRESSION: 1. No acute findings. This document has been electronically signed by: Augustina Santos MD on 06/21/2025 13:11:15
[2025-06-21 11:53] VITALS: BP 137/76; PULSE 99; RESP 20; TEMP 37.2; O2SAT 95; BMI 32.1
--- NOTE | 2025-06-21 11:53 | ED.GENADULT ---
HPI - General Adult General Chief complaint: Dyspnea Stated complaint: SOB ASTHMA FEELS LIKE SHE WILL PASS OUT Time Seen by Provider: 06/21/25 17:28 History of Present Illness HPI narrative: Author / Clinician: Temo Morales MD Chief Complaint Severe, persistent cough with near-syncope episodes History of Present Illness 64-year-old female (hallway bed #8) presents for evaluation of worsening cough and several episodes of near syncope precipitated by violent coughing fits. She reports: - Initial URI?type illness began ? 2 weeks ago (sore throat, congestion, headache, nausea, vomiting); viral testing at that time negative for influenza. - Patient describes having year-round/seasonal allergies. - Evaluated at a walk-in clinic ? diagnosed with presumed pneumonia and started on amoxicillin 875 mg. - Returned to this ED on 06/10; concern for pneumothorax, which was ruled out on repeat imaging. Discharged home on Augmentin ? 1 week and a prednisone dose-pack (20 mg taper). - Finished Augmentin 6 days ago (last Sunday); completed final prednisone dose earlier today. - Cough has intensified: paroxysms productive of thick green sputum, audible wheeze, chest wall and abdominal strain pain, and light-headedness ?almost passing out? when coughing. - Tried an OTC dextromethorphan (DEM) preparation today without relief. No current asthma maintenance therapy; remote childhood asthma treated only with ?updraft.? Denies COPD, tobacco, or alcohol use. Review of Systems Positive: - General: Near-syncope with coughing. - HEENT: Nasal congestion, sore throat. - Respiratory: Severe productive cough (green sputum), wheezing, chest and abdominal wall pain from coughing. - GI: Prior nausea/vomiting with initial illness. - MSK: Chest wall/abdominal muscle discomfort. Negative / Denied (specifically discussed): - Respiratory: No history of COPD. - CV: Denies heart disease, DVT/PE, hypertension. - Endocrine: Denies diabetes. - Social: Denies smoking and alcohol use. --- Physical Examination Vital Signs: Measure Value ------- ----- Physical Exam: Gen: Alert, cooperative; mild distress during coughing fits. Head: Atraumatic. Eyes: Anicteric, normal conjunctiva. ENT: Congested nasal passages, moist mucosa, no oral pallor. Neck: Supple. Respiratory: Diffuse bilateral expiratory wheezes; no rales, rhonchi, or focal crackles. Breathing comfortably at rest. Cardiovascular: Regular rate and rhythm; no murmurs, rubs, or gallops. Abdominal: Soft, non-distended; mild tenderness over abdominal wall muscles consistent with cough strain; no guarding or rebound. Neuro: Alert, oriented ? 3; gross motor intact. Psych: Calm and appropriate. --- Past Medical History - Remote childhood asthma (no current controller medications) - Allergic rhinitis (year-round/seasonal allergies) - No COPD, HTN, DM, CAD, DVT/PE Medications - Bupropion XL 300 mg daily - Alprazolam 0.25 mg PRN (rare use) - Fluticasone nasal spray daily - Recent (completed): Amoxicillin course, Augmentin 1-week course, prednisone taper (finished today) Allergies Social History - Never smoker - No alcohol use - Insurance: Medicare --- Medical Decision Making Preliminary Differential: - Asthma exacerbation (reactivation of childhood asthma) - Post-viral/reactive airway bronchitis - Post-infectious cough - Re-infection or persistent bacterial pneumonia (less likely; CXR clear) - Pneumothorax ? ruled out on today?s and prior imaging Chest X-ray today shows no infiltrate and no pneumothorax. Recent labs reportedly reassuring. On exam patient has diffuse wheezing and productive green sputum without systemic toxicity. Overall presentation most consistent with an asthma exacerbation triggered by lingering viral bronchitis. This is a moderate-complexity ED visit. Plan - Nebulized DuoNeb (albuterol/ipratropium) now; may repeat as needed. - Dexamethasone 10 mg PO. - Benzonatate (Tessalon Perles) for cough suppression as tolerated. - Consider albuterol MDI and spacer device for home use at discharge (pending final disposition). - Encourage continued hydration and vomv-[id number]-[id number] guaifenesin at home (patient reports supply). - Monitor response to therapy in ED; repeat lung exam after treatments. Independent Data Analysis/Interpretation: - Imaging: Chest X-ray independently reviewed ? no acute infiltrate, no pneumothorax. - ECG: N/A this visit. - POCUS: Not performed. Additional Complexity: - Consults: None required. - Social determinants: No barriers identified. Risk: - Moderate: Acute illness with systemic symptoms / asthma exacerbation --- ED Course, Updates Chest X-ray reviewed as above. Initial DuoNeb and dexamethasone administered; patient tolerating therapy. Wheezing persists but improving; will continue bedside monitoring and additional nebulizer treatments as indicated. Arranging discharge medications (albuterol MDI + spacer, benzonatate). Disposition Critical Care: N/A Related Data Home Medications ?Medication ?Instructions ?Recorded ?Confirmed bupropion HCl 300 mg 24 hr tablet, 300 mg PO DAILY 04/05/23 06/08/25 extended release citalopram 10 mg tablet 10 mg PO DAILY 04/05/23 06/08/25 cetirizine 10 mg tablet (Zyrtec) 10 mg PO DAILY PRN Allergy Symptoms 10/20/23 06/08/25 fluticasone propionate 50 1 spray intranasal DAILY PRN Nasal 10/20/23 06/08/25 mcg/actuation nasal Congestion spray,suspension (Flonase Allergy Relief) alprazolam 0.25 mg tablet 0.25 mg PO DAILY PRN Anxiety 06/08/25 06/08/25 Previous Rx's ?Medication ?Instructions ?Recorded albuterol sulfate 90 mcg/actuation 2 inh inhalation Q6H PRN shortness 10/20/23 breath activated powder inhaler of breath or wheezing #1 ea benzonatate 100 mg capsule 100 mg PO TID PRN cough #30 caps 06/09/25 budesonide 180 mcg/actuation 1 inh inhalation DAILY PRN asthma 06/21/25 breath activated powder inhaler #1 ea prednisone 20 mg tablet 60 mg (3 x 20 mg) PO DAILY 4 days 06/21/25 #12 tabs sulfamethoxazole 800 1 tab PO Q12H 5 days #10 tabs 06/21/25 mg-trimethoprim 160 mg tablet (Bactrim DS) Allergies Allergy/AdvReac Type Severity Reaction Status Date / Time No Known Allergies Allergy Verified 06/23/25 13:06 N.K.D.A. 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 Patient states that feels like she is going to pass out when coughing. Detailed physical exam and review of systems are deferred to the respiratory clinician. EKG, labs, imaging, swabs ordered. Patient placed back in the waiting room pending room availability and results. Medications Administered Discontinued Medications Generic Name Dose Route Start Last Admin Trade Name Freq PRN Reason Stop Dose Admin Albuterol Sulfate 12 puff 06/21/25 17:58 06/21/25 18:01 Albuterol Sulfate 90 Mcg 8 Gm Inhaler INHALE 06/21/25 17:59 12 puff ONCE ONE Administration Benzonatate 200 mg 06/21/25 17:46 06/21/25 18:01 Benzonatate 100 Mg Capsule PO 06/21/25 17:47 200 mg ONCE ONE Administration Albuterol Sulfate 5 mg/ 0 mg 06/21/25 17:46 06/21/25 17:58 Albuterol/Ipratropium 3 ml INHALE 06/21/25 17:47 Not Given ONCE ONE Dexamethasone 10 mg 06/21/25 17:46 06/21/25 18:02 Dexamethasone 2 Mg Tablet PO 06/21/25 17:47 10 mg ONCE ONE Administration Magnesium Oxide 800 mg 06/21/25 17:46 06/21/25 18:01 Magnesium Oxide 400 Mg Tablet PO 06/21/25 17:47 800 mg ONCE ONE Administration Medical Decision Making Lab Data 06/21/25 12:26 06/21/25 12:26 Labs: Lab Results 06/21/25 06/21/25 Range/Units 12:17 12: WBC 9.8 (4.8-10.8) X10*3/uL RBC 4.65 (4.20-5.50) X10*6/uL Hgb 13.7 (12.0-16.0) g/dl Hct 41.5 (37.0-47.0) % MCV 89.2 (80.0-98.0) fL MCH 29.5 (27.0-33.0) pg MCHC 33.0 (31.0-35.0) g/dl RDW 12.5 (11.0-16.0) % Plt Count 325 (160-400) X10*3/uL MPV 9.6 (9.4-12.3) fL Immature Gran % (Auto) 0.4 (0.0-0.4) % Neut % (Auto) 80.2 H (45-73) % Lymph % (Auto) 10.0 L (20-40) % Bosque % (Auto) 8.4 (2-11) % Eos % (Auto) 0.6 (0-4) % Baso % (Auto) 0.4 (0-2) % Lymph # (Auto) 1.0 L (1.2-4.9) X10*3/uL Bosque # (Auto) 0.8 (0.1-1.2) X10*3/uL Eos # (Auto) 0.1 (0.0-0.4) X10*3/uL Baso # (Auto) 0.0 (0.0-0.2) X10*3/uL Abs Immat Gran (auto) 0.04 H (0.00-0.03) X10*3/uL Absolute Neuts (auto) 7.9 (2.0-8.3) x10*3/uL Absolute Nucleated RBC 0.000 (0.0-0.012) X10*3/uL Nucleated RBC % (auto) 0.0 (0.0-0.2) /100WBC Sodium 143 (135-145) mmol/L Potassium 3.9 (3.3-5.1) mmol/L Chloride 106 (96-108) mmol/L Carbon Dioxide 26 (22-29) mmol/L Anion Gap 15 (12-20) BUN 18 H (9-16) mg/dL Creatinine 1.07 (0.5-1.4) mg/dL Estim Creat Clear Calc 55.3 Estimated GFR 51 Random Glucose 123 H (60-115) mg/dL Calcium 9.0 (8.4-10.2) mg/dL Magnesium 2.2 (1.6-2.6) mg/dL Total Bilirubin 0.5 (0.0-1.0) mg/dL AST 17 (5-31) U/L ALT 21 (0-31) U/L Alkaline Phosphatase 106 (39-117) U/L Troponin I High Sens < 2.7 (<3.5-17.0) ng/L NT-Pro-B Natriuret Pep 81.5 (<300) pg/mL Total Protein 7.1 (6.5-8.0) g/dL Albumin 4.4 (3.5-5.0) g/dL Influenza Type A (PCR) NEGATIVE (Negative) Influenza Type B (PCR) NEGATIVE (Negative) RSV RNA Qual (PCR) NEGATIVE (Negative) SARS-CoV-2 RNA (RT-PCR) NEGATIVE (Negative) Discharge Plan Discharge Clinical Impression: Asthma with exacerbation Patient Disposition: Home, Self-Care Instructions: Asthma (DC) Prescriptions: New prednisone 20 mg tablet 60 mg PO DAILY 4 Days Qty: 12 0RF sulfamethoxazole-trimethoprim [Bactrim DS] 800-160 mg tablet 1 tab PO Q12H 5 Days Qty: 10 0RF budesonide 180 mcg/actuation aerosol powdr breath activated 1 inh inhalation DAILY PRN (Reason: asthma) Qty: 1 0RF Rx Instructions: Don't exceed 3 consecutive days until advised by industrial truck mechanic No Action alprazolam 0.25 mg tablet 0.25 mg PO DAILY PRN (Reason: Anxiety) benzonatate 100 mg capsule 100 mg PO TID PRN (Reason: cough) Qty: 30 0RF Rx Instructions: Take one tablet up to three times a day for cough bupropion HCl 300 mg tablet extended release 24 hr 300 mg PO DAILY citalopram 10 mg tablet 10 mg PO DAILY cetirizine [Zyrtec] 10 mg tablet 10 mg PO DAILY PRN (Reason: Allergy Symptoms) fluticasone propionate [Flonase Allergy Relief] 50 mcg/actuation spray,suspension 1 spray intranasal DAILY PRN (Reason: Nasal Congestion) Rx Instructions: administer into each nostril albuterol sulfate 90 mcg/actuation aerosol powdr breath activated 2 inh inhalation Q6H PRN (Reason: shortness of breath or wheezing) Qty: 1 0RF Interventions: ED Discharge Assessment Last Done: 06/21/25 18:28 Discharge Date/Time: 06/21/25 18:28 Print Language: Icelandic
--- NOTE | 2025-06-21 11:55 | ECG_ITS ---
Test Reason : lightheadedness Blood Pressure : */* mmHG Vent. Rate : 98 BPM Atrial Rate : 98 BPM P-R Int : 150 ms QRS Dur : 84 ms QT Int : 364 ms P-R-T Axes : 67 58 63 degrees QTcB Int : 464 ms Normal sinus rhythm Normal ECG When compared with ECG of 29-Dec-2005 05:50, No significant changes seen Referred By: Rae Delgado Electronically Signed By: MARIE CASTELLON
[2025-06-21 12:30] LABS: MANUAL DIFF FLAG NO
[2025-06-21 12:31] LABS: Hematocrit 41.5 % (37.0-47.0); Hemoglobin 13.7 g/dl (12.0-16.0); Imm Gran Abs Auto 0.04 X10*3/uL (0.00-0.03); Imm Gran Pct Auto 0.4 % (0.0-0.4); Lymphocytes Absolute Auto 1.0 X10*3/uL (1.2-4.9); Mean Corpuscular HGB Conc 33.0 g/dl (31.0-35.0); Mean Corpuscular Hemoglobin 29.5 pg (27.0-33.0); Mean Corpuscular Volume 89.2 fL (80.0-98.0); NRBC Abs Auto 0.000 X10*3/uL (0.0-0.012); NRBC Pct Auto 0.0 /100WBC (0.0-0.2); Platelet Count 325 X10*3/uL (160-400); Red Blood Count 4.65 X10*6/uL (4.20-5.50); White Blood Count 9.8 X10*3/uL (4.8-10.8)
[2025-06-21 13:00] LABS: Alanine Aminotransferase 21 U/L (0-31); Albumin Level 4.4 g/dL (3.5-5.0); Alkaline Phosphatase 106 U/L (39-117); Anion Gap 15 (12-20); Aspartate Amino Transferase 17 U/L (5-31); Blood Urea Nitrogen 18 mg/dL (9-16); Calcium 9.0 mg/dL (8.4-10.2); Carbon Dioxide 26 mmol/L (22-29); Chloride 106 mmol/L (96-108); Creatinine Clr Calc Pharmacy 55.3; Estimated Glomerular Filt Rate 51; Magnesium 2.2 mg/dL (1.6-2.6); Potassium 3.9 mmol/L (3.3-5.1); Sodium 143 mmol/L (135-145); Total Protein 7.1 g/dL (6.5-8.0)
[2025-06-21 13:09] LABS: NT Pro B Type Natriuretic Pept 81.5 pg/mL (<300)
[2025-06-21 13:15] LABS: Resp Syncy Virus RNA Qual PCR NEGATIVE (Negative); SARS COV2 PCR INHOUSE NEGATIVE (Negative)
[2025-06-21 13:18] LABS: Troponin-I High Sensitivity < 2.7 ng/L (<3.5-17.0)
--- OUTSIDE RECORDS SUMMARY | 2025-06-21 17:40 | XMS_ITS | Clinical Summary ---
Author Organization [facility] Address [address] [place] [id number] Phone Care Team Providers Care Kiln Tester Name Role Phone Angie Gilbert DEXTER Primary [...] Overview (06/16/2024): Followed by Kelton Hugo at [facility]. Assessment & Plan (09/15/2024 8:54 AM EDT): [...] AM EDT): Discussed prior referral placed to [facility] Weight Management. She will call and schedule. Strongly encouraged to work on lifestyle modifications. Assessment & Plan (06/16/2024 9:07 AM EST): Discussed history of obesity, previously worked with Weight Management with good success. She is interested in doing this again and considering medication assistance. Referral placed to [facility] Weight Management today. Immunizations Immunization Administration Dates [...] high school, GED, job training, learning the French language, technical skills, or developing parenting skills)? [...] (09/15/2024 8:37 AM EDT) HDL 70 mg/dL [facility] Comment: Interpretation <40 mg/dL: Low HDL cholesterol (major risk factor for CHD) Greater than or equal to 60 mg/dL: High HDL cholesterol ( negative risk factor for CHD) HDL - cholesterol is affected by a number of factors, e.g. smoking, excerise, hormones, sex and age. CHOLESTEROL 258(H) 0 - 240 mg/dL [facility] TRIGLYCERIDES 99 30 - 160 mg/dL [facility] LDL 168(H) 50 - 129 mg/dL [facility] Comment: LDL levels in terms of risk for coronary heart disease: <100 mg/dL: Optimal 100-129 mg/dL: Near or above optimal 130-159 mg/dL: Borderline high 160-189 mg/dL: High >190 mg/dL: Very High CARDIAC RISK RATIO 3.7 3.3 - 4.4 C [facility] Blood 09/15/2024 8:37 AM EDT 09/15/2024 8:41 AM EDT us Angie Gilbert SALES REPRESENTATIVES LAB BLOOD BKR ORDERABLES Fin al Result [facility] [address] [place] [address] * COLONOSCOPY FOR RESULT ENTRY ONLY (08/04/2024) Colonoscopy external us Historical Provider MD HEALTH MAINTENANCE Final Result from Last 3 Months or Most Recently Relevant to Health Maintenance Insurance [facility] [place] [place] [place] [address] [place] [address] [place] [address] [facility] Care Teams Kiln Tester Relationship Specialty Start Date End Date Angie Gilbert CNP [address] [place] [address], [address] [place], [place] [id number] [email or web address] PCP - General Nurse Practitioner 09/13/24 Additional Source Comments The information contained in this document represents components of the legal health record. It is not the complete legal health record.[facility]
[2025-06-21] MEDS: Albuterol Sulfate 90 MCG 8 GM INHALER 12 PUFF INHALE (18:01)
[2025-06-21 18:03] VITALS: PULSE 94; RESP 18; O2SAT 96
[2025-06-21 18:28] VITALS: BP 133/66; PULSE 94; RESP 18; TEMP 36.8; O2SAT 98
== END 2025-06-21 18:28 | disposition home or self-care (01) ==
PROVIDERS: Physician Assistant Medical; Emergency Provider Emergency Medicine
DX: J45.901 Unspecified asthma with (acute) exacerbation (principal); R05.9 Cough, unspecified; R55 Syncope and collapse; R06.02 Shortness of breath; Z03.818 Encounter for observation for suspected exposure to other biological agents ruled out
CPT/HCPCS: 71046; 80053; 83735; 83880; 84484; 85025; 87637; 93005; 94640; 99284; J8540

== ENCOUNTER → 2025-06-21 11:55 | Outpatient (BNV) | payer MEDICARE, SELFPAY | PROVIDERS: Emergency Provider Emergency Medicine; Visit Provider Internal Medicine | DX: R42 Dizziness and giddiness (principal) | CPT/HCPCS: 93010 ==

== ENCOUNTER → 2025-06-21 11:55 | Outpatient (BNV) | payer MEDICARE, SELFPAY | PROVIDERS: Visit Provider Radiology Diagnostic Radiology | DX: R42 Dizziness and giddiness (principal) | CPT/HCPCS: 71046 ==

== ENCOUNTER 2025-06-23 12:57 | Outpatient (AMB) | payer MEDICARE, SELFPAY ==
[2025-06-23 13:01] VITALS: BMI 32.1
--- NOTE | 2025-06-23 13:01 | A.OFFVIS_ITS ---
Vital Signs 06/23/25 13:01 Height 5 ft 4 in Weight 187 lb BMI 32.1 Intake Visit Reasons: ER- Left thumb arthritis Intake Note: Caridad 64 yr old left hand dominant who is retired, presents today [facility] [place] visit for her left thumb pain. Patient seen in ED on 06/10/25. Patient states she was walking, tripped and fell on an uneven side walk, landing on her left upper extremity. Patient states that since then she has had left hand + thumb pain. Patient was splinted and referred to Orthopedics for further evaluation. Today patient states she is aware she has osteoarthritis and is currently complaining of pain at base of thumb, wrist pain when lifting, weakness, achenes and has difficulty opening up a jar. At times she has numbness and tingling but is not daily. Hx of left hand CTR many-30 yeras ago Allergies No Known Allergies Allergy (Verified 06/23/25 13:06) N.K.D.A. Allergy (Unknown, Uncoded 06/23/25 13:06) unknown Pt states she might be lactose Adverse Reaction (Unknown, Uncoded 06/23/25 13:06) Gassiness HPI HPI ER- Left thumb arthritis: Details: Caridda is a 64 year old left hand dominant woman who presents for exacerbation of her left basal joint OA following a fall on 06/10/2025. She complains of pain at the base of her thumb, worse with pinching or gripping activities. She says her pain worsened after a fall onto her left hand, DOI: 06/10/25. she was seen in the ED and given a splint, which she wears daily. She has a Hx of a left carpal tunnel release 30+ years ago. She says she has some occasional numbness in her hand but this is not yet daily. 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 Review of Systems Const All systems reviewed & are unremarkable except as noted in HPI and below Physical Exam Vital Signs: BMI result Body Mass Index 32.1 Const General: cooperative, healthy appearing and no acute distress Orientation/consciousness: patient oriented x3 HEENT Head: Yes normocephalic and Yes atraumatic Eyes EOM: EOMs intact bilaterally Resp Effort & Inspection: normal respiratory effort and able to speak in complete sentences Cardio Jugular venous distension: no JVD Skin General skin exam: turgor normal Rashes: no rashes Neuro General: patient oriented x3 Extrem Other: Evaluation of Left Upper Extremity: The patient is alert, oriented, and in no acute distress Neuro: Median, Ulnar, Radial nerves motor and sensory intact and sensation is normal to the tips of all digits Vascular: Cap refill brisk ROM: She can make a fist and extend all her digits No locking or catching Skin: No lacerations or abrasions. General: No Ecchymosis. No Erythema or evidence of infection. Most tender over the basal joint of the left thumb Pos shoulder sign Pos CMC grind Mild tenderness over the pisiform Mild tenderness over the a1 lio of the left thumb Radiographs: 3 views of the right hand from 06/10/25 were reviewed by me today in clinic. They show severe basal joint arthritis with joint space narrowing, subchondral sclerosis, and osteophyte formation. She also has some STT arthritis. No fractures or dislocations. Psych Appearance: grossly normal Affect: normal affect Attitude: cooperative Assessment & Plan Assessment & Plan (1) Arthritis of carpometacarpal (CMC) joint of left thumb: Code(s): M18.12 - Unilateral primary osteoarthritis of first carpometacarpal joint, left hand Category: Medical Plan Assessment & Plan: 1. Left basal joint OA Aggravated S/P fall, DOI: 06/10/25 I educated her about this condition I discussed operative and non-operative treatment options including steroid injection The patient would like to proceed with bracing She may benefit from an injection in the future, but her symptoms have been improving with time & rest I discussed activity modification, they should limit or avoid any heavy or repetitive pinching or gripping activities She was fitted for a comfort cool brace to wear with daily activity She should work on ROM exercises, and avoid any gripping or strengthening activities I discussed the use of assistive devices for daily activity She can follow up prn. If her symptoms persist or worsen in the next 4 weeks, she should contact the clinic for an appointment to discuss a possible injection Scribed for Paris Hawley MD by Andrew Marshall mobile paramedical examiner, on 06/23/25 at 1:15 PM, EST. Coding Level of Care Code New Pt Level 3 (16051) Diagnoses Arthritis of carpometacarpal (CMC) joint of left thumb M18.12
--- OUTSIDE RECORDS SUMMARY | 2025-06-23 16:49 | XMS_ITS | Clinical Summary ---
Author Organization [facility] Address [address] [place] [id number] Phone Care Team Providers Care Soft Top Installer Name Role Phone Angie Gilbert DEXTER Primary Care Provider [phone] Allergies No known active allergies Medications albuterol [...] Overview (06/16/2024): Followed by Kelton Hugo at [facility]. Assessment & Plan (09/15/2024 8:54 AM EDT): [...] AM EDT): Discussed prior referral placed to [facility] Weight Management. She will call and schedule. Strongly encouraged to work on lifestyle modifications. Assessment & Plan (06/16/2024 9:07 AM EST): Discussed history of obesity, previously worked with Weight Management with good success. She is interested in doing this again and considering medication assistance. Referral placed to [facility] Weight Management today. Immunizations Immunization Administration [...] high school, GED, job training, learning the Greek language, technical skills, or developing parenting skills)? [...] (09/15/2024 8:37 AM EDT) HDL 70 mg/dL [facility] Comment: Interpretation <40 mg/dL: Low HDL cholesterol (major risk factor for CHD) Greater than or equal to 60 mg/dL: High HDL cholesterol ( negative risk factor for CHD) HDL - cholesterol is affected by a number of factors, e.g. smoking, excerise, hormones, sex and age. CHOLESTEROL 258(H) 0 - 240 mg/dL [facility] TRIGLYCERIDES 99 30 - 160 mg/dL [facility] LDL 168(H) 50 - 129 mg/dL [facility] Comment: LDL levels in terms of risk for coronary heart disease: <100 mg/dL: Optimal 100-129 mg/dL: Near or above optimal 130-159 mg/dL: Borderline high 160-189 mg/dL: High >190 mg/dL: Very High CARDIAC RISK RATIO 3.7 3.3 - 4.4 C [facility] Blood 09/15/2024 8:37 AM EDT 09/15/2024 8:41 AM EDT us Angie Gilbert SUPERVISOR DOPING LAB BLOOD BKR ORDERABLES Fin al Result [facility] [address] [place] [address] * COLONOSCOPY FOR RESULT ENTRY ONLY (08/04/2024) Colonoscopy external us Historical Provider MD HEALTH MAINTENANCE Final Result from Last 3 Months or Most Recently Relevant to Health Maintenance Insurance [facility] [place] [address] [place] [address] [place] [address] [facility] Care Teams Soft Top Installer Relationship Specialty Start Date End Date Angie Gilbert CNP [address] [place] [address], [address] [place], [place] [id number] [email or web address] PCP - General Nurse Practitioner 09/13/24 Additional Source Comments The information contained in this document represents components of the legal health record. It is not the complete legal health record.[facility]
--- OUTSIDE RECORDS SUMMARY | 2025-06-23 16:49 | XMS_ITS | Patient Health Record ---
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 Name Role Phone Facundo (RETIRED) Alejandro KAUR Primary Care Provide r Unavailable Alvaro Nava Unavailable [phone] Reason For Referral No Information Plan Of Treatment No Information Insurance Providers Payer Name Payer Address Payer Phone Subscriber Number Group Number Insured Name Patient Relationship to Insured Coverage Start Date Coverage End Date [facility] [address] [place] [phone] [id number] KATHRYN MENSAH Self - patient is the insured Medical (General) History Medical History History ICD Code colonoscopy 12-16-2010 colon polyps mild asthma depression/anxiety Denies NV,DM,CVA,Lung disease,renal dise ase Surgical History Surgery Date(Month/Year) cholecystectomy
== END 2025-06-23 13:23 | disposition home or self-care (01) ==
LOC: HO.HOS 12:58
PROVIDERS: Visit Provider Orthopaedic Surgery
DX: M18.12 Unilateral primary osteoarthritis of first carpometacarpal joint, left hand (principal)
CPT/HCPCS: 99203

== ENCOUNTER → 2025-06-23 12:57 | Outpatient (BNVA) | payer MEDICARE, SELFPAY | PROVIDERS: Visit Provider Orthopaedic Surgery | DX: M18.12 Unilateral primary osteoarthritis of first carpometacarpal joint, left hand (principal) | CPT/HCPCS: 99202 ==